=== PATIENT | male | born 1945 | race Caucasian/White ===

== ENCOUNTER 2018-04-03 17:24 | Observation (INO) | payer BC ==
--- OUTSIDE RECORDS SUMMARY | 2018-04-03 17:26 | XMS REPORT ---
:1945 [facility] Address [address] [place] [address] Dr. Bearden [address] [place] [address] Care Team Providers Name Role Phone UNKNOWN, REFERRING Primary Care Provider Unavailable Problems This patient has no known problems. Allergies, Adverse Reactions, Alerts This patient has no known allergies or adverse reactions. Medications This patient has no known medications. Encounters Start End Encounter Admission Attending Care Care Encounter Date/Time Date/Time Type Type Clinicians Facility Department ID 2017-07-21 2017-07-21 Emergency [facility] [id number] 18:06:00 18:06:00
[2018-04-03 17:46] LABS: Absolute Lymphocytes (CBC) 1.3 K/uL (0.7-4.9); Absolute Monocytes 0.8 K/uL (0.1-1.3); Absolute Neutrophil 4.1 K/uL (1.8-8.0); Hematocrit 32.3 % (39.6-49.0); Lymphocytes % 19.4 % (15.3-44.8); MCH 29.9 pg (27.0-35.0); MPV 7.9 fL (7.6-11.3); RBC Red Blood Cell Count 3.71 M/uL (4.33-5.43)
[2018-04-03 17:48] LABS: Protime INR 1.04
--- NOTE | 2018-04-03 17:51 | RAD REPORT ---
EXAM DESCRIPTION: CT - Ct Stroke Brain Wo Cont - 04/03/2018 5:39 pm CLINICAL HISTORY: Slurred speech COMPARISON: November 2017 TECHNIQUE: Computed axial tomography of the head was obtained. IV contrast was not requested. All CT scans are performed using dose optimization technique as appropriate and may include automated exposure control or mA/KV adjustment according to patient size. FINDINGS: An intracranial bleed is not seen . The ventricles are normal in caliber. No extra-axial fluid collection is noted. 2 centimeter low-density area within the left cerebrum is unchanged likely secondary to an old infarc t. A small low-density area within the left cerebellum is also unchanged likely representing an old i nfarct. Fluid within the sinuses/ mastoids is not seen. IMPRESSION: No acute intracranial abnormality is seen. If patient's symptoms persist MRI of the bra in would be recommended. Exam was discussed with Dr. French 5:40 p.m. April 03, 2018
[2018-04-03 18:03] LABS: Potassium 4.3 mmol/L (3.5-5.1)
--- NOTE | 2018-04-03 18:20 | ER ---
Nurse's Notes [facility] Name: Jose Ramon Lancaster Age: 72 yrs Sex: Male : 1945 Arrival Date: 04/03/2018 Time: 17:30 Bed 4 Private MD: Jamaal Oviedo T Diagnosis: Transient cerebral ischemic attack, unspecified Presentation: 04/03 17:21 Presenting complaint: states: Pt was having slurred speech and his right eye was sv closed after coming out of the bathroom started about 1645. reports that he had a pacemaker placed in November 2017 and had an embolism after the procedure and was sent to the [place] afterwards. Pt just had a repeat CT head today at 1430 as a follow up. 17:21 Note Pt arrived to the ER by EMS at [address] by Lydia BUSTOS. sv 17:31 Presenting complaint: EMS states: Called out at 1648 for slurred speech. EMS noted pt sv to have right facial droop, tongue deviated to the right and slurred speech. Gait was even. BP 140/74 87% RA, placed on O2 \T\ 2L per NC and O2 sat 92%. BS-115. 20G R FA, paced at 80. Transition of care: patient was not received from another setting of care. An acute neurological deficit is present. The charge nurse has been notified. The patients blood glucose was checked before arriving to the hospital and was found to be normal. Onset of symptoms was April 03, 2018 at 16:45. Risk Assessment: Do you want to hurt yourself or someone else? Patient reports no desire to harm self or others. Initial Sepsis Screen: Does the patient meet any 2 criteria? No. Patient's initial sepsis screen is negative. Does the patient have a suspected source of infection? No. Patient's initial sepsis screen is negative. Care prior to arrival: IV initiated. 20 GA, in the right forearm, Glucose check: 115 Oxygen administered. via nasal cannula. 17:31 Method Of Arrival: EMS: [facility] sv 17:31 Acuity: TOMMY 2 sv Triage Assessment: 18:31 The onset of the patients symptoms was April 03, 2018 at 16:45. sv Stroke Activation: Symptom onset < 3 hours Physician: Stroke Attending; Name: ; Notified At: 17:12; Arrived At: Physician: Chief Stroke Resident; Name: ; Notified At: 17:12; Arrived At: Physician: Stroke Resident; Name: ; Notified At: 17:12; Arrived At: Physician: ED Attending; Name: Dr French; Notified At: 17:12; Arrived At: 17:37 Physician: ED Resident; Name: ; Notified At: 17:12; Arrived At: Historical: - Allergies: 18:25 No Known Allergies; sv - Home Meds: 18:25 hydrochlorothiazide 12.5 mg Oral tab 1 tab once daily [Active]; Metoprolol Tartrate sv Oral [Active]; losartan 100 mg oral tab 1 tab once daily [Active]; folic acid 1 mg Oral tab 1 tab once daily [Active]; tamsulosin 0.4 mg oral cp24 1 cap once daily [Active]; montelukast 10 mg oral tab 1 tab once daily [Active]; donepezil 5 mg oral tab 1 tab once daily [Active]; aspirin 81 mg Oral chew 1 tab once daily [Active]; Vitamin D3 5,000 unit oral tab twice a day [Active]; atorvastatin 10 mg oral tab 1 tab once daily [Active]; Colace 100 mg oral cap 1 cap once daily [Active]; vitamin C90-banlz acid oral oral [Active]; multivitamin oral oral [Active]; Miralax Oral [Active]; - PMHx: 18:25 Alcoholism; TIA; embolism; Diabetes - NIDDM; left eye vision is bad since ; sv Hypertension; - PSHx: 18:25 Pacemaker; sv - Immunization history:: Adult Immunizations up to date. - Social history:: Smoking status: Patient/guardian denies using tobacco, Patient/guardian denies using alcohol, the patient reports quitting approximately .25 years ago. - Ebola Screening: : No symptoms or risks identified at this time. Screenin:35 Patient has been NPO before screening. The patient is alert, able to follow commands. sv The patient does not exhibit slurred or garbled speech The patient is not exhibiting difficulty speaking. The patient does not exhibit difficulty understanding words. The patient is able to swallow own secretions with no drooling or need for suction. Patient tolerated one teaspoon of water. No drooling, immediate coughing, gurgling, or clearing of the throat was noted. The patient tolerated 90mL of water. No drooling, immediate coughing, gurgling, or clearing of the throat was noted. The patient passed the bedside swallow screening. Oral medications may be given as ordered. Contact Physician for further diet orders. Provider notified of bedside swallow screening results: Guy French MD. 18:27 Abuse screen: Denies threats or abuse. Denies injuries from another. Nutritional sv screening: No deficits noted. Tuberculosis screening: No symptoms or risk factors identified. Fall Risk None identified. Assessment: 17:12 Reassessment: Code Stroke called. sv 17:32 General: Appears in no apparent distress. comfortable, Behavior is calm, cooperative, sv appropriate for age. Pain: Denies pain. Neuro: Level of Consciousness is awake, alert, obeys commands, Oriented to person, place, time, situation, Moves all extremities. Full function Speech is normal, Facial symmetry appears normal. Cardiovascular: Patient's skin is warm and dry. Rhythm is sinus rhythm. Respiratory: Respiratory effort is even, unlabored, Respiratory pattern is regular, symmetrical. Derm: Skin is pink, warm \T\ dry. 17:35 Patient has been NPO before screening. The patient is alert, and able to follow sv commands. The patient does not exhibit slurred or garbled speech. The patient is not exhibiting difficulty speaking. The patient does not exhibit difficulty understanding words. The patient is able to swallow own secretions with no drooling or need for suction. Patient tolerated one teaspoon of water. No drooling, immediate coughing, gurgling, or clearing of the throat was noted. The patient tolerated 90mL of water. No drooling, immediate coughing, gurgling, or clearing of the throat was noted. The patient passed the bedside swallow screening. Oral medications may be given as ordered. Contact Physician for further diet orders. Provider notified of bedside swallow screening results: Guy French MD. T-PA (Activase) Screening: Contraindications: Rapidly improving condition or minor deficit: Yes. 19:16 General: Appears in no apparent distress. comfortable, Behavior is calm, cooperative, ea appropriate for age. Pain: Denies pain. Neuro: Level of Consciousness is awake, alert, obeys commands, Oriented to person, place, time, situation, Moves all extremities. Full function Speech is normal, Facial symmetry appears normal. Cardiovascular: Heart tones S1 S2 present Patient's skin is warm and dry. Respiratory: Airway is patent Respiratory effort is even, unlabored, Respiratory pattern is regular, symmetrical, pt currently on 2 L of O2 per n/c Breath sounds are clear bilaterally. GI: Abdomen is round Bowel sounds present X 4 quads. : No signs and/or symptoms were reported regarding the genitourinary system. EENT: No signs and/or symptoms were reported regarding the EENT system. Derm: Skin is pink, warm \T\ dry. 19:53 Reassessment: Report called to Angelina BUSTOS on fourth floor. ea Vital Signs: 17:38 BP 142 / 69; Pulse 71; Resp 18; Temp 98.8; Pulse Ox 89% on R/A; Weight 99.79 kg; Height sv 6 ft. 0 in. (182.88 cm); Pain 0/10; 18:15 BP 126 / 76; Pulse 65; Resp 18; Pulse Ox 95% on 2 lpm NC; sv 19:15 BP 130 / 77; Pulse 74; Resp 16; Pulse Ox 98% on 2 lpm NC; mt 19:58 BP 133 / 83; Pulse 78; Resp 18; Pulse Ox 98% on 2 lpm NC; ea 17:38 Body Mass Index 29.84 (99.79 kg, 182.88 cm) sv 17:38 Pt placed on O2 \T\ 2L per NC. O2 sat up to 97%. sv NIH Stroke Scale Scores: 17:37 NIHSS Score: 0 sv 21:56 NIHSS Score: 0 ED Course: 17:30 Patient arrived in ED. ss 17:30 Guy French MD is Attending Physician. gs 17:30 Arm band placed on right wrist. sv 17:31 CT completed. Patient tolerated procedure well. Patient moved back from CT. nj 17:31 Patient moved back from CT. sv 17:31 Maintain EMS IV. Dressing intact. Site clean \T\ dry. Gauge \T\ site: 20G R FA. sv 17:39 CT Stroke Brain w/o Contrast In Process Unspecified. EDMS 17:39 Initial lab(s) drawn, by ED staff, sent to lab. sv 17:40 Patient has correct armband on for positive identification. Placed in gown. Bed in low sv position. Side rails up X2. Adult w/ patient. color television console monitor on. Pulse ox on. NIBP on. Head of bed elevated. 17:41 Yarely Shine, RN is Primary Nurse. sv 17:41 X-ray(s) taken. sv 17:48 Triage completed. sv 17:51 Stroke CXR 1 View In Process Unspecified. EDMS 17:58 EKG done, by mortuary technician. reviewed by Guy French MD. sm3 18:20 Yohannes Harrell DO is Hospitalizing Provider. gs 18:33 Jamaal Oviedo MD is Private Physician. sv 18:51 Troponin (emerg Dept Use Only) Sent. sv 18:51 Basic Metabolic Panel Sent. sv 18:51 CBC with Diff Sent. sv 18:51 Protime (+inr) Sent. sv 19:03 Primary Nurse role handed off by Yarely Shine RN sv 19:03 Report given to Ivana BUSTOS. sv 19:05 Ivana Stringer RN is Primary Nurse. ea 19:16 No provider procedures requiring assistance completed. Patient admitted, IV remains in ea place. Administered Medications: No medications were administered Point of Care Testing: Blood Glucose: 17:35 Blood Glucose: 102 mg/dL; sv Ranges: Outcome: 18:20 Decision to Hospitalize by Provider. gs 19:21 Instructed on the need for admit. ea 19:53 Condition: stable ea 19:57 Admitted to Med/surg accompanied by tech, via stretcher, room 413, with oxygen, with ea chart, Report called to Angelina BUSTOS 19:59 Patient left the ED. ea NIH Stroke Scale - NIH Stroke Score Date: 04/03/2018 Time: 17:37 Total Score = 0 1a. Level of Consciousness (LOC) - 0(Alert) 1b. Level of Consciousness (LOC) (Year \T\ Age) - 0(Both) 1c. LOC Commands (Open \T\ Closes Eyes/Chemical Plant Operator) - 0(Both) 2. Best Gaze (Lateral Gaze Paresis) - 0(Normal) 3. Visual Field Loss - 0(No visual loss) 4. Facial Palsy - 0(Normal) 5a. Left Arm: Motor (10-second hold) - 0(No drift) 5b. Right Arm: Motor (10-second hold) - 0(No drift) 6a. Left Leg: Motor (5-second hold - always test supine) - 0(No drift) 6b. Right Leg: Motor (5-second hold - always test supine) - 0(No drift) 7. Limb Ataxia (finger/nose \T\ heel/joseph - test with eyes open) - 0(Absent) 8. Sensory Loss (pinprick arms/legs/face) - 0(Normal) 9. Best Language: Aphasia (description/naming/reading) - 0(No aphasia) 10. Dysarthria (speech clarity - read or repeat words) - 0(Normal) 11. Extinction and Inattention (visual/tactile/auditory/spatial/personal) - 0(No abnormality) Initials: NIH Stroke Scale - NIH Stroke Score Date: 04/03/2018 Time: 21:56 Total Score = 0 1a. Level of Consciousness (LOC) - 0(Alert) 1b. Level of Consciousness (LOC) (Year \T\ Age) - 0(Both) 1c. LOC Commands (Open \T\ Closes Eyes/Chemical Plant Operator) - 0(Both) 2. Best Gaze (Lateral Gaze Paresis) - 0(Normal) 3. Visual Field Loss - 0(No visual loss) 4. Facial Palsy - 0(Normal) 5a. Left Arm: Motor (10-second hold) - 0(No drift) 5b. Right Arm: Motor (10-second hold) - 0(No drift) 6a. Left Leg: Motor (5-second hold - always test supine) - 0(No drift) 6b. Right Leg: Motor (5-second hold - always test supine) - 0(No drift) 7. Limb Ataxia (finger/nose \T\ heel/joseph - test with eyes open) - 0(Absent) 8. Sensory Loss (pinprick arms/legs/face) - 0(Normal) 9. Best Language: Aphasia (description/naming/reading) - 0(No aphasia) 10. Dysarthria (speech clarity - read or repeat words) - 0(Normal) 11. Extinction and Inattention (visual/tactile/auditory/spatial/personal) - 0(No abnormality) Initials: Signatures: Dispatcher [employer] Yarely Oleary RN RN sv Smirch, Shelby, RN RN ss Jordan, Nathan nj Thompson, Moriah mt Antunez, Elena, RN RN ea Starr, Gregory, MD MD gs Butler, Lori sm3 Corrections: (The following items were deleted from the chart) 18:32 17:31 Presenting complaint: EMS states: Called out at 1648 for slurred speech. sv EMS noted pt to have right facial droop, tongue deviated to the right and slurred speech. Gait was even. BP 140/74 87% RA, placed on O2 \T\ 2L per NC and O2 sat 92%. BS-115. 20G R FA, paced at 80. sv
--- NOTE | 2018-04-03 18:20 | EDPHYS ---
Physician Documentation [facility] Name: Jose Ramon Lancaster Age: 72 yrs Sex: Male : 1945 Arrival Date: 04/03/2018 Time: 17:30 Bed 4 Private MD: Jamaal Oviedo T ED Physician Guy French HPI: 04/03 17:30 This 72 yrs old Male presents to ER via Unassigned with complaints of gs neurologic deficit. 21:56 The patient's problem is reported as altered mental status, a facial droop, weakness. gs Onset: The symptoms/episode began/occurred acutely, today, at 16:44. Duration: This was a single incident, resolved. Context: occurred at home. The symptoms are alleviated by nothing. The symptoms are aggravated by nothing. Associated signs and symptoms: Pertinent positives: confusion, Pertinent negatives: shortness of breath. Severity of symptoms: At their worst the symptoms were incapacitating in the emergency department the symptoms have resolved and did so just prior to arrival. The patient has experienced similar episodes in the past, a few times, cva 6 weeks ago. Historical: - Allergies: 18:25 No Known Allergies; sv - Home Meds: 18:25 hydrochlorothiazide 12.5 mg Oral tab 1 tab once daily [Active]; Metoprolol Tartrate sv Oral [Active]; losartan 100 mg oral tab 1 tab once daily [Active]; folic acid 1 mg Oral tab 1 tab once daily [Active]; tamsulosin 0.4 mg oral cp24 1 cap once daily [Active]; montelukast 10 mg oral tab 1 tab once daily [Active]; donepezil 5 mg oral tab 1 tab once daily [Active]; aspirin 81 mg Oral chew 1 tab once daily [Active]; Vitamin D3 5,000 unit oral tab twice a day [Active]; atorvastatin 10 mg oral tab 1 tab once daily [Active]; Colace 100 mg oral cap 1 cap once daily [Active]; vitamin N86-yhwhh acid oral oral [Active]; multivitamin oral oral [Active]; Miralax Oral [Active]; - PMHx: 18:25 Alcoholism; TIA; embolism; Diabetes - NIDDM; left eye vision is bad since ; sv Hypertension; - PSHx: 18:25 Pacemaker; sv - Immunization history:: Adult Immunizations up to date. - Social history:: Smoking status: Patient/guardian denies using tobacco, Patient/guardian denies using alcohol, the patient reports quitting approximately .25 years ago. - Ebola Screening: : No symptoms or risks identified at this time. ROS: 21:56 All other systems are negative. gs Exam: 21:56 Head/Face: Normocephalic, atraumatic. Eyes: Pupils equal round and reactive to light, gs extra-ocular motions intact. Lids and lashes normal. Conjunctiva and sclera are non-icteric and not injected. Cornea within normal limits. Periorbital areas with no swelling, redness, or edema. ENT: Nares patent. No nasal discharge, no septal abnormalities noted. Tympanic membranes are normal and external auditory canals are clear. Oropharynx with no redness, swelling, or masses, exudates, or evidence of obstruction, uvula midline. Mucous membranes moist. Neck: Trachea midline, no thyromegaly or masses palpated, and no cervical lymphadenopathy. Supple, full range of motion without nuchal rigidity, or vertebral point tenderness. No Meningismus. Chest/axilla: Normal chest wall appearance and motion. Nontender with no deformity. No lesions are appreciated. Cardiovascular: Regular rate and rhythm with a normal S1 and S2. No gallops, murmurs, or rubs. Normal PMI, no JVD. No pulse deficits. Respiratory: Lungs have equal breath sounds bilaterally, clear to auscultation and percussion. No rales, rhonchi or wheezes noted. No increased work of breathing, no retractions or nasal flaring. Abdomen/GI: Soft, non-tender, with normal bowel sounds. No distension or tympany. No guarding or rebound. No evidence of tenderness throughout. Back: No spinal tenderness. No costovertebral tenderness. Full range of motion. Skin: Warm, dry with normal turgor. Normal color with no rashes, no lesions, and no evidence of cellulitis. MS/ Extremity: Pulses equal, no cyanosis. Neurovascular intact. Full, normal range of motion. 21:56 Neuro: Orientation: is normal, Mentation: is normal, Memory: is normal, Cranial nerves: CN II- XII are normal as tested, Cerebellar function: normal finger to nose testing, Motor: is normal, Sensation: is normal. Vital Signs: 17:38 BP 142 / 69; Pulse 71; Resp 18; Temp 98.8; Pulse Ox 89% on R/A; Weight 99.79 kg; Height sv 6 ft. 0 in. (182.88 cm); Pain 0/10; 18:15 BP 126 / 76; Pulse 65; Resp 18; Pulse Ox 95% on 2 lpm NC; sv 19:15 BP 130 / 77; Pulse 74; Resp 16; Pulse Ox 98% on 2 lpm NC; mt 19:58 BP 133 / 83; Pulse 78; Resp 18; Pulse Ox 98% on 2 lpm NC; ea 17:38 Body Mass Index 29.84 (99.79 kg, 182.88 cm) sv 17:38 Pt placed on O2 \T\ 2L per NC. O2 sat up to 97%. sv NIH Stroke Scale Scores: 17:37 NIHSS Score: 0 sv 21:56 NIHSS Score: 0 gs MDM: 17:44 Patient medically screened. 21:56 Differential diagnosis: CVA, TIA, metabolic disorder, drug effects. Data reviewed: vital signs, nurses notes. ED course: no tpa symptoms completely resolved. 04/03 17:32 Order name: Troponin (emerg Dept Use Only) 04/03 17:32 Order name: Basic Metabolic Panel 04/03 17:32 Order name: CBC with Diff 04/03 17:32 Order name: Protime (+inr) 04/03 17:32 Order name: Troponin (Emerg Dept Use Only); Complete Time: 18:19 EDMS 04/03 17:32 Order name: Basic Metabolic Panel; Complete Time: 18:19 EDMS 04/03 17:32 Order name: CBC with Automated Diff; Complete Time: 18:19 EDMS 04/03 17:32 Order name: Protime (+INR); Complete Time: 18:19 EDMS 04/03 18:33 Order name: CBC with Automated Diff EDMS 04/03 18:33 Order name: CBC with Automated Diff EDMS 04/03 18:33 Order name: CBC with Automated Diff EDMS 04/03 18:33 Order name: CBC with Automated Diff EDMS 04/03 18:33 Order name: CKMB Creatine Kinase MB EDMS 04/03 18:33 Order name: CKMB Creatine Kinase MB EDMS 04/03 18:33 Order name: CKMB Creatine Kinase MB EDMS 04/03 18:33 Order name: Comprehensive Metabolic Panel [facility] 04/03 18:33 Order name: Comprehensive Metabolic Panel [facility] 04/03 18:33 Order name: Comprehensive Metabolic Panel [facility] 04/03 18:33 Order name: Comprehensive Metabolic Panel [facility] 04/03 18:33 Order name: Creatine Phosphokinase [facility] 04/03 18:33 Order name: Creatine Phosphokinase [facility] 04/03 18:33 Order name: Creatine Phosphokinase [facility] 04/03 18:33 Order name: Hemoglobin A1c [facility] 04/03 18:33 Order name: Hemoglobin A1c [facility] 04/03 18:33 Order name: Lipid Profile [facility] 04/03 18:33 Order name: Lipid Profile [facility] 04/03 18:33 Order name: Magnesium [facility] 04/03 18:33 Order name: Magnesium [facility] 04/03 18:33 Order name: Magnesium [facility] 04/03 18:33 Order name: Magnesium [facility] 04/03 17:32 Order name: CT Stroke Brain w/o Contrast; Complete Time: 18:19 04/03 17:32 Order name: Stroke CXR 1 View 04/03 17:32 Order name: EKG; Complete Time: 17:33 04/03 17:32 Order name: Accucheck; Complete Time: 18:51 04/03 17:32 Order name: Cardiac monitoring; Complete Time: 18:51 04/03 17:32 Order name: EKG - Nurse/Tech; Complete Time: 18:52 04/03 17:32 Order name: IV Saline Lock; Complete Time: 18:19 04/03 17:32 Order name: Labs collected and sent; Complete Time: 18:19 04/03 17:32 Order name: NPO; Complete Time: 18:19 04/03 17:32 Order name: O2 Per Protocol; Complete Time: 18:19 04/03 17:32 Order name: O2 Sat Monitoring; Complete Time: 18:19 04/03 17:32 Order name: Stroke Swallow Screen; Complete Time: 18:19 04/03 18:33 Order name: CONS Physician Consult [facility] 04/03 18:33 Order name: Physical Therapy Consult [facility] 04/03 18:33 Order name: Consistent Carb (ADA) [address] [facility] 04/03 18:33 Order name: T4 Free [facility] 04/03 18:33 Order name: T4 Free [facility] 04/03 18:33 Order name: Troponin I [facility] 04/03 18:33 Order name: Troponin I [facility] 04/03 18:33 Order name: Troponin I [facility] 04/03 18:33 Order name: Thyroid Stimulating Hormone [facility] 04/03 18:33 Order name: Thyroid Stimulating Hormone [facility] 04/03 18:34 Order name: Speech Therapy Consult EDMS Administered Medications: No medications were administered Point of Care Testing: Blood Glucose: 17:35 Blood Glucose: 102 mg/dL; sv Ranges: Critical Glucose Levels:Adult <50 mg/dl or >400 mg/dl <40 mg/dl or >180 mg/dl Disposition: 04/03/18 18:20 Hospitalization ordered by Yohannes Harrell for Observation. Preliminary diagnosis is Transient cerebral ischemic attack, unspecified. - Bed requested for Telemetry/MedSurg (observation). - Status is Observation. ea - Condition is Stable. - Problem is new. - Symptoms have improved. UTI on Admission? No Critical care time excluding procedures: 21:56 Critical care time: Bedside Care: 10 minutes, Consultation: 10 minutes, Family gs Intervention: 10 minutes. Total time: 30 minutes NIH Stroke Scale - NIH Stroke Score Date: 04/03/2018 Time: 17:37 Total Score = 0 1a. Level of Consciousness (LOC) - 0(Alert) 1b. Level of Consciousness (LOC) (Year \T\ Age) - 0(Both) 1c. LOC Commands (Open \T\ Closes Eyes/Casting Operator) - 0(Both) 2. Best Gaze (Lateral Gaze Paresis) - 0(Normal) 3. Visual Field Loss - 0(No visual loss) 4. Facial Palsy - 0(Normal) 5a. Left Arm: Motor (10-second hold) - 0(No drift) 5b. Right Arm: Motor (10-second hold) - 0(No drift) 6a. Left Leg: Motor (5-second hold - always test supine) - 0(No drift) 6b. Right Leg: Motor (5-second hold - always test supine) - 0(No drift) 7. Limb Ataxia (finger/nose \T\ heel/joseph - test with eyes open) - 0(Absent) 8. Sensory Loss (pinprick arms/legs/face) - 0(Normal) 9. Best Language: Aphasia (description/naming/reading) - 0(No aphasia) 10. Dysarthria (speech clarity - read or repeat words) - 0(Normal) 11. Extinction and Inattention (visual/tactile/auditory/spatial/personal) - 0(No abnormality) Initials: soledad NIH Stroke Scale - NIH Stroke Score Date: 04/03/2018 Time: 21:56 Total Score = 0 1a. Level of Consciousness (LOC) - 0(Alert) 1b. Level of Consciousness (LOC) (Year \T\ Age) - 0(Both) 1c. LOC Commands (Open \T\ Closes Eyes/Casting Operator) - 0(Both) 2. Best Gaze (Lateral Gaze Paresis) - 0(Normal) 3. Visual Field Loss - 0(No visual loss) 4. Facial Palsy - 0(Normal) 5a. Left Arm: Motor (10-second hold) - 0(No drift) 5b. Right Arm: Motor (10-second hold) - 0(No drift) 6a. Left Leg: Motor (5-second hold - always test supine) - 0(No drift) 6b. Right Leg: Motor (5-second hold - always test supine) - 0(No drift) 7. Limb Ataxia (finger/nose \T\ heel/joseph - test with eyes open) - 0(Absent) 8. Sensory Loss (pinprick arms/legs/face) - 0(Normal) 9. Best Language: Aphasia (description/naming/reading) - 0(No aphasia) 10. Dysarthria (speech clarity - read or repeat words) - 0(Normal) 11. Extinction and Inattention (visual/tactile/auditory/spatial/personal) - 0(No abnormality) Initials: Signatures: Dispatcher [employer] EDYarely Pollard RN Phuong Machado RN RN dw Antunez, Elena, RN RN ea Starr, Gregory, MD MD gs Corrections: (The following items were deleted from the chart) 19:03 18:20 Hospitalization Ordered by Yohannes Harrell DO for Observation. Preliminary diagnosis is Transient cerebral ischemic attack, unspecified. Bed requested for Telemetry/MedSurg (observation). Status is Observation. Condition is Stable. Problem is new. Symptoms have improved. UTI on Admission? No. gs 19:06 19:03 04/03/2018 18:20 Hospitalization Ordered by Yohannes Harrell DO for dw Observation. Preliminary diagnosis is Transient cerebral ischemic attack, unspecified. Bed requested for Telemetry/MedSurg (observation). Status is Observation. Condition is Stable. Problem is new. Symptoms have improved. UTI on Admission? No. dw 19:59 19:06 04/03/2018 18:20 Hospitalization Ordered by Yohannes Harrell DO for ea Observation. Preliminary diagnosis is Transient cerebral ischemic attack, unspecified. Bed requested for Telemetry/MedSurg (observation). Status is Observation. Condition is Stable. Problem is new. Symptoms have improved. UTI on Admission? No. dw
[2018-04-03] MEDS ORDERED: D50W 25 GM/50 ML SYRINGE IV PRN (18:25)
[2018-04-03] MEDS ORDERED: GLUCAGON 1 MG/VIAL IM PRN (18:25)
[2018-04-03] MEDS ORDERED: ONDANSETRON 4 MG/2 ML VIAL IV PRN (18:25)
[2018-04-03] MEDS ORDERED: ACETAMINOPHEN 500 MG TAB PO PRN (18:25)
--- NOTE | 2018-04-03 18:39 | RAD REPORT ---
EXAM DESCRIPTION: Richard Single View04/03/2018 5:51 pm CLINICAL HISTORY: Cough COMPARISON: November 2017 FINDINGS: The lungs appear clear of acute infiltrate. The heart is mildly enlarged. Pacemaker leads are in place. IMPRESSION: No acute abnormalities displayed
--- NOTE | 2018-04-03 19:57 | P.HP ---
Certification for Inpatient Patient admitted to: Observation With expected LOS: <2 Midnights Practitioner: I am a practitioner with admitting privileges, knowledge of patient current condition, hospital course, and medical plan of care. Services: Services provided to patient in accordance with Admission requirements found in Title 42 Section 412.3 of the Code of Federal Regulations Patient History Date of Service: 04/03/18 Reason for admission: TIA History of Present Illness: Mr Lancaster is a 72 years old male, former smoker and drinker, with history of DM II, HTN, pacemaker placement in 12/10 complicated with an embolic event, who had a post stroke CT head today at about 1430. Subsequently at about 1630, the patient suddenly start with slurred speech. 10 minutes later, arrived EMS and found the patient with right facial drop. No numbness, tingling or weakness. When the patient was evaluated in ED, he already was starting to improve, his deficit. At my encounter the patient had no neurologic deficit. Allergies No Known Allergies Allergy (Verified 12/05/17 21:57) Home medications list reviewed: Yes Home Medications: Atorvastatin Calcium [Lipitor*] 10 mg PO DAILY 12/05/17 Clopidogrel Bisulfate [Clopidogrel] 75 mg PO DAILY 12/05/17 Cyanocobalamin (Vitamin B-12) [B-12] 5,000 mcg PO DAILY 12/05/17 Folic Acid [Folic Acid*] 1 tab PO DAILY 12/05/17 Losartan/Hydrochlorothiazide [Losartan-Hctz 100-12.5 mg Tab] 1 tab PO DAILY Metformin ER [Glucophage ER*] 500 mg PO BID 12/05/17 Montelukast [Singulair*] 10 mg PO DAILY 12/05/17 Tamsulosin [Flomax*] 0.4 mg PO DAILY 12/05/17 Ubidecarenone [Co Q-10] 200 mg PO DAILY 12/05/17 chlordiazePOXIDE HCl [Librium*] 25 mg PO BID 12/05/17 Cholecalciferol (Vitamin D3) [Vitamin D3] 1,000 unit PO DAILY 12/06/17 Metoprolol Succinate [Toprol Xl*] 50 mg PO BID 6AM 6PM #60 tab 12/12/17 - Past Medical/Surgical History Diabetic: No -: ETOH -: HTN -: DM -: STROKE -: BPH -: testicle sx - Family History Family History: Reviewed- Non-Contributory - Social History Smoking Status: Former smoker Alcohol use: Yes CD- Drugs: No Caffeine use: Yes Place of Residence: Home Review of Systems 10-point ROS is otherwise unremarkable Physical Examination - Physical Exam General: Alert, In no apparent distress HEENT: Atraumatic, PERRLA, Mucous membr. moist/pink, EOMI, Sclerae nonicteric Neck: Supple, 2+ carotid pulse no bruit, No LAD, Without JVD or thyroid abnormality Respiratory: Clear to auscultation bilaterally, Normal air movement Cardiovascular: Regular rate/rhythm, Normal S1 S2 Gastrointestinal: Normal bowel sounds, No tenderness Musculoskeletal: No tenderness Integumentary: No rashes Neurological: Normal speech, Normal strength at 5/5 x4 extr, Normal tone, Normal affect Lymphatics: No axilla or inguinal lymphadenopathy - Studies Laboratory Data (last 24 hrs) 04/03/18 17:31: PT 12.3, INR 1.04 04/03/18 17:31: WBC 6.5, Hgb 11.1 L, Hct 32.3 L, Plt Count 255 04/03/18 17:31: Sodium 140, Potassium 4.3, BUN 31 H, Creatinine 1.50 H, Glucose 97 Assessment and Plan - Problems (Diagnosis) (1) TIA (transient ischemic attack) Current Visit: Yes Status: Acute Qualifiers: Transient cerebral ischemia type: other Qualified Code(s): G45.8 - Other transient cerebral ischemic attacks and related syndromes (2) Hypertension Onset Date: 12/06/17 Current Visit: No Status: Chronic Qualifiers: Hypertension type: essential hypertension Qualified Code(s): I10 - Essential (primary) hypertension (3) Type 2 diabetes mellitus Onset Date: 12/06/17 Current Visit: No Status: Chronic Qualifiers: Diabetes mellitus buttermaker helper insulin use: without jail use Diabetes mellitus complication status: without complication Qualified Code(s): E11.9 - Type 2 diabetes mellitus without complications - Plan The patient was admitted to the hospital due to TIA. CT head showed no acute abnormalities. He is already on statins and plavix. Pending ECHO, carotid doppler, and Brain MRI if pacemaker compatible. Dr Muñoz consulted. - Advance Directives Does patient have a Living Will: No Does patient have a Durable POA for Healthcare: No - Code Status/Comfort Care Code Status Assessed: Yes Code Status: Full Code
[2018-04-03 20:22] VITALS: BMI 29.1
[2018-04-03] MEDS ORDERED: INSULIN -REGULAR HUMAN 50 UNIT/0.5 ML ML SQ SCH (21:00)
[2018-04-03] MEDS ORDERED: TAMSULOSIN 0.4 MG SR CAP PO SCH (21:00)
[2018-04-03] MEDS ORDERED: ATORVASTATIN 80 MG TAB PO SCH (21:00)
[2018-04-03] MEDS: INSULIN -REGULAR HUMAN 50 UNIT/0.5 ML ML SQ SCH (21:00)
--- NOTE | 2018-04-03 21:16 | RAD REPORT ---
EXAM DESCRIPTION: VASCarotid Artery Bilateral04/03/2018 9:08 pm CLINICAL HISTORY: TIA COMPARISON: 2012 FINDINGS: The velocity of the right internal carotid artery equals 86 cm/sec. The right ICA/CCA rati o 1 The velocity of the left internal carotid artery equals 90 cm/sec. The left ICA/CCA ratio 0.9 Mild plaque is present within the carotid arteries. The vertebral arteries demonstrate antegrade flow IMPRESSION: Mild plaque within the carotid arteries without evidence of a hemodynamically significan t stenosis
--- NOTE | 2018-04-03 21:31 | EKG ---
Test Date: 2018-04-03 Test Time: 17:43:56 [employer]: [place] MEASUREMENT RESULTS: Intervals: Rate: 66 AL: 228 QRSD: 168 QT: 444 QTc: 465 [place]: P: 105 AL: 228 QRS: -76 T: 71 INTERPRETIVE STATEMENTS: Atrial-sensed ventricular-paced rhythm with prolonged AV conduction Abnormal ECG Compared to ECG 12/10/2017 14:10:59 Sinus rhythm no longer present Electronically Signed On 04-03-18 21:30:59 CDT by Gino Arzola
[2018-04-03] MEDS: ENOXAPARIN 40 MG/0.4 ML SQ SCH (22:08)
[2018-04-03] MEDS: NA CHLORIDE 0.9% 1,000 ML IV SCH (22:09)
[2018-04-04 00:51] LABS: CKMB Creatine Kinase MB < 1.0 ng/mL (0.3-3.6); Creatine Phosphokinase 54 U/L (39-308)
[2018-04-04 02:03] LABS: Urine Appearance CLEAR; Urine Bilirubin NEGATIVE (NEG); Urine Blood NEGATIVE (NEG); Urine Color YELLOW; Urine Glucose NEGATIVE (NEG); Urine Protein NEGATIVE (NEG); Urine Specific Gravity 1.015 (1.005-1.030); Urine Urobilinogen 0.2 mg/dL (0.2-1.0)
[2018-04-04 02:27] LABS: Urine Microscopic Reflex ORDER UMIC
[2018-04-04 02:33] LABS: Urine Bacteria >50 /HPF (NONE SEEN); Urine Culture Reflex Order REFLEXED; Urine RBC NONE SEEN /HPF (NONE SEEN)
[2018-04-04 05:54] LABS: Absolute Lymphocytes (CBC) 1.1 K/uL (0.7-4.9); Absolute Monocytes 0.7 K/uL (0.1-1.3); Absolute Neutrophil 3.8 K/uL (1.8-8.0); Basophils % 0.7 % (0-1.3); Eosinophils % 4.3 % (0-4.4); Hematocrit 30.8 % (39.6-49.0); Lymphocytes % 18.7 % (15.3-44.8); MCH 30.2 pg (27.0-35.0); MCV 85.6 fL (80-100); MPV 7.9 fL (7.6-11.3)
[2018-04-04] MEDS ORDERED: METOPROLOL TAR 25 MG TAB PO SCH ×2 (06:00→18:00)
[2018-04-04 06:06] LABS: Albumin 2.9 g/dL (3.4-5.0); Bilirubin Total 0.4 mg/dL (0.2-1.0); Magnesium 1.9 mg/dL (1.8-2.4); Potassium 4.1 mmol/L (3.5-5.1); Protein, Total 6.3 g/dL (6.4-8.2); Thyroid Stimulating Hormone 1.52 uIU/mL (0.36-3.74)
[2018-04-04] MEDS: INSULIN -REGULAR HUMAN 50 UNIT/0.5 ML ML SQ SCH ×3 (07:30→16:30)
[2018-04-04 07:39] LABS: Ferritin 362.3 ng/mL (26-388)
[2018-04-04] MEDS ORDERED: ASPIRIN EC 81 MG TAB PO SCH (09:00)
[2018-04-04] MEDS ORDERED: FOLIC ACID 1 MG TABLET PO SCH (09:00)
[2018-04-04] MEDS ORDERED: CLOPIDOGREL 75 MG TABLET PO SCH (09:00)
[2018-04-04] MEDS ORDERED: CEFTRIAXONE/SWI 1gm 1 GM/10 ML SYR IV SCH (09:00)
[2018-04-04] MEDS ORDERED: CEFTRIAXONE 1 GM/NS 50 ML 1 GM/50 ML BAG IV SCH (09:00)
[2018-04-04] MEDS ORDERED: CYANOCOBALAMIN 1,000 MCG TAB PO SCH (09:00)
[2018-04-04] MEDS: ENOXAPARIN 40 MG/0.4 ML SQ SCH (09:50)
[2018-04-04 10:05] LABS: CKMB Creatine Kinase MB 1.2 ng/mL (0.3-3.6)
[2018-04-04] MEDS: NA CHLORIDE 0.9% 1,000 ML IV SCH (10:33)
--- NOTE | 2018-04-04 10:49 | ECHO ---
HEIGHT: 6 ft 0 in WEIGHT: 215 lb 1.6 oz DATE OF STUDY: 04/04/[address]: Yohannes Harrell DO 2-DIMENSIONAL: YES M.MODE: YES DOPPLER: YES COLOR FLOW: YES TDS: NO PORTABLE: NO DEFINITY: NO BUBBLE STUDY: NO DIAGNOSIS: TRANSIENT ISCHEMIC ATTACK WITH HISTORY OF CEREBRAL VASCULAR ACCIDENT, HYPERTENSION, DIABETES MELLITUS AND PACEMAKER. CARDIAC HISTORY: CATHERIZATION: YES SURGERY: NO PROSTHETIC VALVE: NO PACEMAKER: YES MEASUREMENTS (cm) DIASTOLIC (NORMALS) SYSTOLIC (NORMALS) IVSd 1.1 (0.6-1.2) LA Diam 3.9 (1.9-4.0) LVEF 60-65% LVIDd 4.8 (3.5-5.7) LVIDs 3.4 (2.0-3.5) %FS 29% LVPWd 1.2 (0.6-1.2) Ao Diam 3.7 (2.0-3.7) 2 DIMENSIONAL ASSESSMENT: RIGHT ATRIUM: NORMAL LEFT ATRIUM: NORMAL RIGHT VENTRICLE: NORMAL LEFT VENTRICLE: NORMAL TRICUSPID VALVE: NORMAL MITRAL VALVE: NORMAL PULMONIC VALVE: NORMAL AORTIC VALVE: NORMAL PERICARDIAL EFFUSION: NONE AORTIC ROOT: NORMAL LEFT VENTRICULAR WALL MOTION: NORMAL DOPPLER/COLOR FLOW: IMPAIRED LEFT VENTRICULAR RELAXATION. PHYSIOLOGIC TRICUSPID REGURGITATION. NORMAL RIGHT VENTRICULAR SYSTOLIC PRESSURE. COMMENTS: NORMAL 2D ECHOCARDIOGRAM. IMPAIRED LEFT VENTRICULAR RELAXATION. TECHNOLOGIST: Desiree COMER
--- NOTE | 2018-04-04 11:42 | P.PN ---
Subjective Date of Service: 04/04/18 Primary Care Provider: Dr. Oviedo; Neurology-Dr. Muñoz Chief Complaint: TIA Subjective: Improving (Patient doing well this time. No slurred speech noted. No right facial droop.) Physical Examination - Vital Signs Temperature: 96.9 F Blood Pressure: 106/58 Pulse: 60 Respirations: 16 Pulse Ox (%): 98 - Physical Exam General: Alert, In no apparent distress, Oriented x3, Cooperative HEENT: Atraumatic Neck: Supple Respiratory: Clear to auscultation bilaterally, Normal air movement Cardiovascular: Normal pulses, Regular rate/rhythm Gastrointestinal: Normal bowel sounds, Soft and benign, Non-distended, No tenderness, No masses, No rebound, No guarding Musculoskeletal: No erythema, No tenderness, No warmth Integumentary: No tenderness/swelling, No erythema, No warmth, No cyanosis Neurological: Normal speech, Normal strength at 5/5 x4 extr, Normal tone, Normal affect - Studies Laboratory Data (last 24 hrs) 04/03/18 17:31: PT 12.3, INR 1.04 04/03/18 17:31: WBC 6.5, Hgb 11.1 L, Hct 32.3 L, Plt Count 255 04/03/18 17:31: Sodium 140, Potassium 4.3, BUN 31 H, Creatinine 1.50 H, Glucose 97 Medications List Reviewed: Yes Assessment & Plan - Problems (Diagnosis) (1) History of CVA (cerebrovascular accident) Current Visit: Yes Status: Chronic Plan: Patient presented with slurred speech and right facial droop. Likely TIA. This has resolved. Patient with history of CVA. Patient previously taking aspirin at home. Aspirin Plavix started. Will obtain MRI if pacemaker compatible. Carotid Doppler shows no acute stenosis. Echocardiogram unremarkable. Will discuss case further with Neurology. Will have physical therapy assess ambulation. Patient found to have UTI. Patient will need treatment at discharge. Patient also had renal insufficiency likely from medication. Losartan and hydrochlorothiazide discontinued. Metoprolol has been decreased. Anticipate discharge later today. (2) Hyperlipidemia Current Visit: Yes Status: Chronic Plan: Will continue with Lipitor. (3) History of pacemaker Current Visit: Yes Status: Chronic Plan: Patient with pacemaker. Patient will need follow up with cardiology. (4) TIA (transient ischemic attack) Onset Date: 04/04/18 Current Visit: Yes Status: Acute Plan: Patient reported slurred speech and right-sided facial droop. This resolved prior to coming to the emergency room. No abnormalities noted at this time. Continue as above. Will discuss with Neurology. Qualifiers: Transient cerebral ischemia type: other Qualified Code(s): G45.8 - Other transient cerebral ischemic attacks and related syndromes (5) Hypertension Onset Date: 12/06/17 Current Visit: No Status: Chronic Plan: Medications have been adjusted. Hydrochlorothiazide and losartan has been discontinued due to renal sufficiency. Renal function improved with hydration. Metoprolol has been decreased as well. At discharge medications will need to be adjusted. Qualifiers: Hypertension type: essential hypertension Qualified Code(s): I10 - Essential (primary) hypertension (6) Type 2 diabetes mellitus Onset Date: 12/06/17 Current Visit: No Status: Chronic Plan: Will continue with medication. Hypoglycemia will need to be educated. May need to adjust medications at discharge. Qualifiers: Diabetes mellitus terminal worker insulin use: without terminal worker use Diabetes mellitus complication status: without complication Qualified Code(s): E11.9 - Type 2 diabetes mellitus without complications (7) UTI (urinary tract infection) Current Visit: Yes Status: Acute Plan: Patient found to have UTI, urine culture pending. Will start IV antibiotic therapy. Patient will need oral medication at discharge. Qualifiers: Urinary tract infection type: site unspecified Hematuria presence: without hematuria Qualified Code(s): N39.0 - Urinary tract infection, site not specified (8) Renal insufficiency Current Visit: Yes Status: Acute Plan: Medications adjusted. Patient now on off lisinopril and hydrochlorothiazide. Patient being treated for UTI. Renal function improved with hydration. Discharge Plan: Home Plan to discharge in: 24 Hours - Code Status/Comfort Care Code Status Assessed: Yes (Patient full code.) Code Status: Full Code Time Spent Managing Pts Care (In Minutes): 55
[2018-04-04 12:43] VITALS: O2SAT 98
--- NOTE | 2018-04-04 15:15 | P.DS ---
Admission Date: 04/03/18 Discharge Date: 04/04/18 Primary Care Provider: Dr. Oviedo; Neurology-Dr. Muñoz Disposition: ROUTINE DISCHARGE Discharge Condition: GOOD Reason for Admission: TIA Consultations: Neurology-Dr. Muñoz Procedures: CT scan: COMPARISON: November 2017 TECHNIQUE: Computed axial tomography of the head was obtained. IV contrast was not requested. All CT scans are performed using dose optimization technique as appropriate and may include automated exposure control or mA/KV adjustment according to patient size. FINDINGS: An intracranial bleed is not seen . The ventricles are normal in caliber. No extra-axial fluid collection is noted. 2 centimeter low-density area within the left cerebrum is unchanged likely secondary to an old infarct. A small low-density area within the left cerebellum is also unchanged likely representing an old infarct. Fluid within the sinuses/ mastoids is not seen. IMPRESSION: No acute intracranial abnormality is seen. If patient's symptoms persist MRI of the brain would be recommended. Carotid Doppler: No acute stenosis noted. Echocardiogram: Ejection fraction 60%. DOPPLER/COLOR FLOW: IMPAIRED LEFT VENTRICULAR RELAXATION. PHYSIOLOGIC TRICUSPID REGURGITATION. NORMAL RIGHT VENTRICULAR SYSTOLIC PRESSURE. COMMENTS: NORMAL 2D ECHOCARDIOGRAM. IMPAIRED LEFT VENTRICULAR RELAXATION. - Problems (1) History of CVA (cerebrovascular accident) Current Visit: Yes Status: Chronic (2) Hyperlipidemia Current Visit: Yes Status: Chronic (3) History of pacemaker Current Visit: Yes Status: Chronic (4) TIA (transient ischemic attack) Onset Date: 04/04/18 Current Visit: Yes Status: Resolved Qualifiers: Transient cerebral ischemia type: other Qualified Code(s): G45.8 - Other transient cerebral ischemic attacks and related syndromes (5) Hypertension Onset Date: 12/06/17 Current Visit: No Status: Chronic Qualifiers: Hypertension type: essential hypertension Qualified Code(s): I10 - Essential (primary) hypertension (6) Type 2 diabetes mellitus Onset Date: 12/06/17 Current Visit: No Status: Chronic Qualifiers: Diabetes mellitus hopper feeder insulin use: without hopper feeder use Diabetes mellitus complication status: without complication Qualified Code(s): E11.9 - Type 2 diabetes mellitus without complications (7) Renal insufficiency Current Visit: Yes Status: Acute (8) Asymptomatic bacteriuria Current Visit: Yes Status: Acute (9) Anemia Current Visit: Yes Status: Chronic Qualifiers: Anemia type: iron deficiency Iron deficiency anemia type: unspecified iron deficiency Qualified Code(s): D50.9 - Iron deficiency anemia, unspecified (10) Dementia Current Visit: Yes Status: Chronic (11) BPH (benign prostatic hyperplasia) Current Visit: Yes Status: Chronic Qualifiers: Lower urinary tract symptom presence: unspecified whether lower urinary tract symptoms present Qualified Code(s): N40.0 - Benign prostatic hyperplasia without lower urinary tract symptoms Brief History of Present Illness: 72 yo male presented with slurred speech and right-sided facial weakness. Symptoms resolved prior to the the ER. Patient admitted for further evaluation. Hospital Course: During the course of his stay patient was evaluated for possible TIA. Patient with history of previous CVA. This was noted on CT scan. CT scan did not show any acute stroke. Previous stroke noted. As mentioned previously patient presented to the emergency room without any symptoms. The patient had slurred speech and right facial droop. The patient was monitored overnight. Neurology did evaluate the patient. Echocardiogram unremarkable with EF of 60%. Carotid Doppler showed no acute stenosis. MRI was not done since the patient has a pacemaker. Neurology felt that that would not change the plan of care. Neurology recommended that the patient add Plavix. At discharge he will continue with aspirin 81 mg daily and Plavix 75 mg daily. Recommendation is to continue with his other medications. Recommendations for the patient to follow up with neurology in 1 week to monitor his progress. Neurology will consider getting MRI at a higher level of care center that would be able to do MRI scan with pacemaker. Patient has hypertension. Medications were adjusted due to renal insufficiency and low blood pressure. Patient previously on hydrochlorothiazide, losartan and metoprolol. Patient did well with metoprolol only at a lower dose. At discharge he will continue with metoprolol 25 mg 1 pill twice daily. Recommendation daily. Further adjustment can be done by his PCP, cardiology or neurology. Please note at discharge hydrochlorothiazide, losartan have been discontinued. Metoprolol has been decreased from 100 mg twice daily to 25 mg 1 pill twice daily. Further adjustment may be required. Patient presented with renal insufficiency likely related to medication particularly hydrochlorothiazide and losartan. Patient received IV fluids. Improvement of renal function was noted at discharge. Patient was evaluated for possible UTI. Patient with history of UTI in the past. Patient did not have any pain with urination, hematuria, or fever. Patient found to have asymptomatic bacteriuria. No indication for treatment at this time. This can be followed up as an outpatient. UTI prevention will need to be enforced. Patient has hyperlipidemia. LDL 96. Recommendation is to continue with Lipitor 80 mg daily. Patient has a history of iron deficiency anemia. At discharge he will continue with iron supplementation, B12 and folic acid supplementation. At discharge she will continue with iron 325 mg 1 pill daily, B12 vitamin 1 pill daily and folic acid 1 mg daily. Recommendation is to recheck lab-CBC in 1-2 weeks to monitor his progress. Patient has BPH. Patient continue with Flomax 0.4 mg daily. Patient has dementia. Patient will continue with Aricept 5 mg daily. Vital Signs/Physical Exam: Temp Pulse Resp BP Pulse Ox 97.2 F 66 16 122/68 97 04/04/18 12:00 04/04/18 12:00 04/04/18 12:00 04/04/18 12:00 04/04/18 12:00 General: Alert, In no apparent distress, Oriented x3, Cooperative HEENT: Atraumatic Neck: Supple Respiratory: Clear to auscultation bilaterally, Normal air movement Cardiovascular: Normal pulses, Regular rate/rhythm Gastrointestinal: Normal bowel sounds, Soft and benign, Non-distended, No tenderness, No masses, No rebound, No guarding Musculoskeletal: No erythema, No tenderness, No warmth Integumentary: No tenderness/swelling, No erythema, No warmth, No cyanosis Neurological: Normal speech, Normal strength at 5/5 x4 extr, Normal tone, Normal affect Lymphatics: No axilla or inguinal lymphadenopathy Laboratory Data at Discharge: WBC 5.9 K/uL (4.3-10.9) 04/04/18 05:35 Hgb 10.9 g/dL (13.6-17.9) L 04/04/18 05:35 Hct 30.8 % (39.6-49.0) L 04/04/18 05:35 Plt Count 232 K/uL (152-406) 04/04/18 05:35 PT 12.3 SECONDS (9.5-12.5) 04/03/18 17:31 INR 1.04 04/03/18 17:31 Sodium 144 mmol/L (136-145) 04/04/18 05:35 Potassium 4.1 mmol/L (3.5-5.1) 04/04/18 05:35 BUN 26 mg/dL (7-18) H 04/04/18 05:35 Creatinine 1.20 mg/dL (0.55-1.3) 04/04/18 05:35 Glucose 99 mg/dL (74-106) 04/04/18 05:35 Magnesium 1.9 mg/dL (1.8-2.4) 04/04/18 05:35 Total Bilirubin 0.4 mg/dL (0.2-1.0) 04/04/18 05:35 AST 18 U/L (15-37) 04/04/18 05:35 ALT 17 U/L (12-78) 04/04/18 05:35 Alkaline Phosphatase 73 U/L (45-117) 04/04/18 05:35 Troponin I < 0.02 ng/mL (0.0-0.045) 04/04/18 09:20 Triglycerides 108 mg/dL (<150) 04/04/18 05:35 Cholesterol 154 mg/dL (<200) 04/04/18 05:35 HDL Cholesterol 36 mg/dL (40-60) L 04/04/18 05:35 Cholesterol/HDL Ratio 4.28 04/04/18 05:35 Home Medications: RX: Cyanocobalamin (Vitamin B-12) [B-12] 1 gtt PO DAILY 12/05/17 RX: Montelukast [Singulair*] 10 mg PO DAILY 12/05/17 RX: Tamsulosin [Flomax*] 0.4 mg PO BEDTIME 12/05/17 RX: Cholecalciferol (Vitamin D3) [Vitamin D3] 5,000 unit PO BID 12/06/17 Ferrous Sulfate [Iron] 325 mg PO DAILY #30 tablet 04/04/18 RX: Acetaminophen [Tylenol*] 2 tab PO Q4HP PRN 04/04/18 RX: Aspirin Chewable [Aspirin Chewable*] 81 mg PO DAILY 04/04/18 RX: Atorvastatin Calcium [Lipitor] 80 mg PO BEDTIME #30 tab 04/04/18 RX: Clopidogrel Bisulfate [Plavix*] 75 mg PO DAILY #30 tablet 04/04/18 RX: Docusate [Colace Cap*] 100 mg PO DAILY 04/04/18 RX: Donepezil [Aricept*] 5 mg PO BEDTIME 04/04/18 RX: Folic Acid 1 mg PO DAILY 04/04/18 RX: Metoprolol Tartrate [Lopressor*] 25 mg PO BID 6AM 6PM #60 tab 04/04/18 RX: Polyethylene Glycol 3350 [Miralax] 17 gm PO BID PRN 04/04/18 New Medications: Ferrous Sulfate [Iron] 325 mg PO DAILY #30 tablet RX: Atorvastatin Calcium [Lipitor] 80 mg PO BEDTIME #30 tab RX: Clopidogrel Bisulfate [Plavix*] 75 mg PO DAILY #30 tablet RX: Metoprolol Tartrate [Lopressor*] 25 mg PO BID 6AM 6PM #60 tab Patient Discharge Instructions: 1. Patient will need a follow up with PCP in 1 week to follow up this hospitalization. 2. Patient presented with slurred speech and right facial droop. Patient with history of previous CVA. CT scan showed no acute stroke. Patient presented to the ER without any symptoms. Symptoms have resolved. Neurology was consulted. Echocardiogram unremarkable with EF of 60%. Carotid Doppler showed no acute stenosis. MRI was not done since the patient has a pacemaker. Neurology recommended that the patient add Plavix. At discharge he will continue with aspirin 81 mg daily and Plavix 75 mg daily. Recommendation is to continue with his other medications. Recommendations for the patient to follow up with neurology in 1 week to monitor his progress. Neurology will consider getting MRI at a higher level of care center that would be able to do MRI scan with pacemaker. 3. Patient has hypertension. Medications were adjusted due to renal insufficiency and low blood pressure. Patient previously on hydrochlorothiazide, losartan and metoprolol. Patient did well with metoprolol only at a lower dose. At discharge he will continue with metoprolol 25 mg 1 pill twice daily. Recommendation to keep blood pressure less than 150/80. Please note at discharge hydrochlorothiazide, losartan have been discontinued. Metoprolol has been decreased from 100 mg twice daily to 25 mg 1 pill twice daily. Further adjustment may be required. 4. Patient presented with renal insufficiency likely related to medication particularly hydrochlorothiazide and losartan. Patient received IV fluids. Improvement of renal function was noted at discharge. Patient was evaluated for possible UTI. Patient with history of UTI in the past. Patient did not have any pain with urination, hematuria, or fever. Patient found to have asymptomatic bacteriuria. No indication for treatment at this time. This can be followed up as an outpatient. UTI prevention will need to be enforced. Medications were adjusted per renal function. 5. Patient has hyperlipidemia. LDL 96. Recommendation is to continue with Lipitor 80 mg daily. 6. Patient has a history of iron deficiency anemia. At discharge he will continue with iron supplementation, B12 and folic acid supplementation. At discharge she will continue with iron 325 mg 1 pill daily, B12 vitamin 1 pill daily and folic acid 1 mg daily. Recommendation is to recheck lab-CBC in 1-2 weeks to monitor his progress. 7. Patient has BPH. Patient continue with Flomax 0.4 mg daily. 8. Patient has dementia. Patient will continue with Aricept 5 mg daily. Diet: AHA Activity: Fall precautions Time spent managing pt's care (in minutes): 55
[2018-04-04 16:05] VITALS: BP 133/76; TEMP 98
--- NOTE | 2018-04-04 18:45 | CON ---
Reason For Consultation: Called by Dr. Harrell because of transient ischemic attack. History Of Present Illness: Mr. Lancaster is a 72-year-old patient with multiple stroke risk factor s including diabetes mellitus type 2, hypertension, atrial fibrillation, actually with decreased hear t rate, status post pacemaker placement of the heart on 10 of December, who had at the time cardioembo lic event from which he recovered very well. On the 03 of April, that is yesterday, the patient had a followup head CT scan around 2:30 in the afternoon and was doing well. However, later about 4:30, he developed sudden onset right facial weakness along with slurred speech and difficulty getting josef e words out. The patient's brought him into the emergency room, however, the patient symptoms b rahul to resolve and by the time he arrived at the emergency room, he said that there were very little symptoms. However, it should be noted that in the emergency room, it is documented that he did have some right facial drooping, but there was no numbness, tingling in the rest of his face and no weakn ess in the arms and legs. The patient did improve back to his baseline again within about [address] scan done in the emergency room around 5:32 showed no acute intracranial abnormalities and a brain MRI was not done at that time because the patient does have a pacemaker. Carotid artery ult rasound showed no evidence of hemodynamically significant stenosis, but there was mild plaque in both carotid arteries. His electrocardiogram showed an atrial sensed ventricular paced rhythm with prolo nged AV conduction. His echocardiogram on the , that is the following day was a normal study exce pt for impaired left ventricular relaxation. Ejection fraction 60-65%. Initially blood work includi ng urinalysis suggests possibility of urinary tract infection with positive nitrites, greater than 50 bacteria, 3+ esterase. Also the patient was found to be mildly dehydrated with creatinine of 1.5. INR was normal at 1.04. He was treated with a gram of Rocephin in the emergency room, was placed on aspirin 81 mg daily, which the patient said he had been taking off and on and Plavix was added, 75 mg daily along with a DVT prophylaxis of Lovenox and high dose statin of Lipitor 80 mg at bedtime. Past Medical History: As indicated above including history of alcohol use and abuse, hypertension, p rior stroke with good recovery, benign prostatic hypertrophy. Allergies: NO KNOWN DRUG ALLERGIES. Medications: At home, Lipitor 10 mg daily, Plavix 75 mg daily, which patient said he was not taking on a regular basis, vitamin B12 5000 mcg daily, folate 1 mg daily, losartan-hydrochlorothiazide 100-1 2.5 daily, Glucophage 500 mg twice daily, Singulair 10 mg daily, Flomax 0.4 mg daily, coenzyme Q10 20 0 mg daily, Librium 25 mg twice daily, vitamin D3 1000 units daily, and Toprol 50 mg twice daily. Family History: Noncontributory. Surgical History: Testicular surgery. Social History: The patient drank heavily in the past and smoked as well. No current alcohol or tob acco use. Lives at home with family. Review of Systems: He denies any recent fevers, chills, nausea, vomiting, myalgias, arthralgias, weight change, rash, he adache. No psychiatric complaints. No gastrointestinal or genitourinary issues. Physical Examination: Vital Signs: Blood pressure 133/76, pulse 85, respiratory rate 14, temperature 98, oxygen saturation 96%. Weight 215 pounds. Height 6 feet. BMI 29.2 General: Mr. Lancaster is resting comfortably, in no acute distress. HEENT: He is normocephalic, atraumatic. Sclerae anicteric. Oropharynx is pink and moist. Neck: Supple. Chest: Clear. Heart: Regular. Extremities: show no edema, clubbing, or cyanosis. Neurologic: He is alert and oriented to person, place, time, and situation. No cranial nerve defici ts on 2 through 12. No motor deficits in upper and lower extremities. Sensation; stocking-glove los s to light touch and temperature. Reflexes 1+ upper and lower extremities except the right heel. Co ordination intact in upper and lower extremities. Gait, good stance and stride. Laboratory Studies: White blood cell count 5.9, hemoglobin 10.9, hematocrit 30.8, and platelets 232. Chemistries; sodium 140, potassium 4.3, chloride 108, carbon dioxide 24, BUN 26, creatinine 1.2. T otal iron low at 46, total iron binding capacity low at 242, transferrin low at 173%, percent transfe rrin saturation low at 19. Liver function studies are normal. B12 levels elevated to 1765. His HDL is low at 36, LDL is 96, total cholesterol 154, triglycerides 108. T3 and T4 1.2, TSH 1.52. His ch olesterol to HDL ratio was 4.28. Assessment: Mr. Lancaster is a 72-year-old patient with multiple stroke risk factors, who has had a transient ischemic attack while taking aspirin, but not regularly. Plan: 1.Take aspirin 81 mg daily. 2.Plavix 75 mg daily. 3.High dose statin as indicated. 4.The patient is continued on his antihypertensive medications as indicated. 5.Continue with aggressive management of blood sugars. 6.Continue with treatment of possible urinary tract infection and follow up on cultures, which are p ending. 7.The patient may be discharged home and follow up with Dr. Muñoz's in clinic in 1 week. MILLICENT/NELA Voice ID: [id number] Report ID: [id number]
[2018-04-04] MEDS ORDERED: DONEPEZIL HCL 5 MG TAB PO SCH (21:00)
[2018-04-05] MEDS ORDERED: DOCUSATE NA 100 MG CAP PO SCH (09:00)
== END 2018-04-04 17:03 | disposition home or self-care (01) ==
LOC: ER 17:24 → ERHOLD 18:26 → 4TH 19:48
PROVIDERS: ADMIT Family Medicine; ATTEND Internal Medicine
DX: G45.9 Transient cerebral ischemic attack, unspecified (principal); E78.5 Hyperlipidemia, unspecified; I10 Essential (primary) hypertension; E11.9 Type 2 diabetes mellitus without complications; N28.9 Disorder of kidney and ureter, unspecified; D64.9 Anemia, unspecified; R82.71 Bacteriuria; F03.90 Unspecified dementia, unspecified severity, without behavioral disturbance, psychotic disturbance, mood disturbance, and anxiety; N40.0 Benign prostatic hyperplasia without lower urinary tract symptoms; Z86.73 Personal history of transient ischemic attack (TIA), and cerebral infarction without residual deficits; Z95.0 Presence of cardiac pacemaker
CPT/HCPCS: 36415; 70450; 71045; 80048; 80053; 80061; 81003; 81015; 82550; 82553; 82607; 82728; 82962; 83036; 83540; 83735; 84439; 84443; 84466; 84484; 85025; 85610; 87077; 87086; 87088; 87186; 93005; 93306; 93880; 97163; 99285; G0378; J0696; J1650; J7030

== ENCOUNTER 2018-06-18 15:19 | Observation (INO) | payer BC ==
--- OUTSIDE RECORDS SUMMARY | 2018-06-18 15:21 | XMS REPORT ---
:1945 [facility] Address [address] [place] [address] [address]. Bearden [address] [place] [address] Care Team Providers Name Role Phone UNKNOWN, REFERRING Primary Care Provider Unavailable Problems This patient has no known problems. Allergies, Adverse Reactions, Alerts This patient has no known allergies or adverse reactions. Medications This patient has no known medications. Encounters Start End Encounter Admission Attending Care Care Encounter Date/Time Date/Time Type Type Clinicians Facility Department ID 2017-07-21 2017-07-21 Emergency [id number] [id number] 18:06:00 18:06:00
[2018-06-18] MEDS ORDERED: NA CHLORIDE 0.9% 2,000 ML ONE (15:53)
[2018-06-18] MEDS ORDERED: THIAMINE 200 MG/2 ML INJ ONE (15:53)
[2018-06-18] MEDS ORDERED: MULTIVITAMINS 10 ML VIAL (INJ) IV ONE (15:54)
[2018-06-18] MEDS ORDERED: FOLIC ACID 5 MG/ML VIAL ONE (15:55)
[2018-06-18 16:09] LABS: Absolute Lymphocytes (CBC) 1.2 K/uL (0.7-4.9); Absolute Monocytes 0.7 K/uL (0.1-1.3); Basophils % 0.8 % (0-1.3); Eosinophils % 1.6 % (0-4.4); Hematocrit 34.5 % (39.6-49.0); Lymphocytes % 16.9 % (15.3-44.8); MCH 32.2 pg (27.0-35.0); MCV 93.3 fL (80-100); Monocytes % 9.4 % (3.3-12.3)
[2018-06-18 16:19] LABS: Protime INR 1.02
[2018-06-18] MEDS ORDERED: ACETAMINOPHEN 500 MG TAB PO PRN (16:35)
[2018-06-18] MEDS ORDERED: ONDANSETRON 4 MG/2 ML VIAL IV PRN (16:35)
[2018-06-18] MEDS ORDERED: SODIUM CHLORIDE 0.9% 10ML INJ IV PRN (16:36)
--- NOTE | 2018-06-18 16:36 | EDPHYS ---
Physician Documentation [facility] Name: Jose Ramon Lancaster Age: 72 yrs Sex: Male : 1945 Arrival Date: 06/18/2018 Time: 15:29 Bed 6 Private MD: ED Physician Pérez Polanco HPI: 06/18 16:23 This 72 yrs old Male presents to ER via EMS with complaints of Fall Injury, jae Altered Mental Status. 16:23 Details of fall: The patient fell from an upright position, while standing, while jae walking. Onset: The symptoms/episode began/occurred just prior to arrival. Associated injuries: The patient sustained right arm, abrasion, contusion. Severity of symptoms: At their worst the symptoms were mild, moderate, in the emergency department the symptoms are unchanged. The patient has experienced similar episodes in the past, several times. Historical: - Allergies: 16:18 No Known Allergies; hb - Home Meds: 16:18 aspirin 81 mg Oral chew 1 tab once daily [Active]; atorvastatin 10 mg Oral tab 1 tab hb once daily [Active]; folic acid 1 mg Oral tab 1 tab once daily [Active]; hydrochlorothiazide 12.5 mg Oral tab 1 tab once daily [Active]; losartan 100 mg Oral tab 1 tab once daily [Active]; Metoprolol Tartrate Oral [Active]; Miralax Oral [Active]; montelukast 10 mg Oral tab 1 tab once daily [Active]; multivitamin Oral [Active]; tamsulosin 0.4 mg Oral cp24 1 cap once daily [Active]; vitamin X78-[id number] acid Oral [Active]; Vitamin D3 5,000 unit Oral tab twice a day [Active]; 16:37 donepezil 10 mg oral tab twice a day [Active]; hb - PMHx: 16:18 Alcoholism; Diabetes - NIDDM; EMBOLISM; Hypertension; left eye vision is bad since hb ; TIA; - PSHx: 16:18 Pacemaker; hb - Immunization history: Last tetanus immunization: < 10 years ago. - Social history:: Smoking status: Patient/guardian denies using tobacco. - Ebola Screening: : No symptoms or risks identified at this time. ROS: 16:24 Constitutional: Negative for fever, chills, and weight loss, Eyes: Negative for injury, jae pain, redness, and discharge, ENT: Negative for injury, pain, and discharge, Neck: Negative for injury, pain, and swelling, Cardiovascular: Negative for chest pain, palpitations, and edema, Respiratory: Negative for shortness of breath, cough, wheezing, and pleuritic chest pain, Abdomen/GI: Negative for abdominal pain, nausea, vomiting, diarrhea, and constipation, Back: Negative for injury and pain, : Negative for injury, bleeding, discharge, and swelling, Skin: Negative for injury, rash, and discoloration, Psych: Negative for depression, anxiety, suicide ideation, homicidal ideation, and hallucinations, Allergy/Immunology: Negative for hives, rash, and allergies, Endocrine: Negative for neck swelling, polydipsia, polyuria, polyphagia, and marked weight changes, Hematologic/Lymphatic: Negative for swollen nodes, abnormal bleeding, and unusual bruising. 16:24 MS/extremity: Positive for abrasion, pain, of the right arm. Exam: 16:24 Constitutional: This is a well developed, well nourished patient who is awake, alert, jae and in no acute distress. Head/Face: Normocephalic, atraumatic. Eyes: Pupils equal round and reactive to light, extra-ocular motions intact. Lids and lashes normal. Conjunctiva and sclera are non-icteric and not injected. Cornea within normal limits. Periorbital areas with no swelling, redness, or edema. ENT: Nares patent. No nasal discharge, no septal abnormalities noted. Tympanic membranes are normal and external auditory canals are clear. Oropharynx with no redness, swelling, or masses, exudates, or evidence of obstruction, uvula midline. Mucous membranes moist. Neck: Trachea midline, no thyromegaly or masses palpated, and no cervical lymphadenopathy. Supple, full range of motion without nuchal rigidity, or vertebral point tenderness. No Meningismus. Chest/axilla: Normal chest wall appearance and motion. Nontender with no deformity. No lesions are appreciated. Cardiovascular: Regular rate and rhythm with a normal S1 and S2. No gallops, murmurs, or rubs. Normal PMI, no JVD. No pulse deficits. Respiratory: Lungs have equal breath sounds bilaterally, clear to auscultation and percussion. No rales, rhonchi or wheezes noted. No increased work of breathing, no retractions or nasal flaring. Abdomen/GI: Soft, non-tender, with normal bowel sounds. No distension or tympany. No guarding or rebound. No evidence of tenderness throughout. Back: No spinal tenderness. No costovertebral tenderness. Full range of motion. Male : Normal genitalia with no discharge or lesions. MS/ Extremity: Pulses equal, no cyanosis. Neurovascular intact. Full, normal range of motion. Psych: Awake, alert, with orientation to person, place and time. Behavior, mood, and affect are within normal limits. 16:24 Skin: injury, abrasion(s), small abrasion noted, skin tears. 16:24 Neuro: Orientation: is normal, appropriate for stated age, no acute changes, Mentation: is normal, no acute changes, slow to respond, Memory: is normal, appropriate for stated age, no acute changes, Cranial nerves: grossly normal, is grossly normal based on the patient's age, no acute changes, Cerebellar function: is grossly normal based on the patient's age, Gait: not tested. Deep tendon reflexes are 2+ (normal) in the bilateral brachioradialis, bicep, tricep and patellar and Achilles tendons, Babinski testing is normal. Vital Signs: 15:21 BP 90 / 58; Pulse 62; Resp 20; Temp 98.2; Pulse Ox 100% on R/A; Pain 0/10; hb 15:40 Pulse Ox 90% on R/A; hb 16:00 BP 91 / 57; Pulse 60; Resp 15; Pulse Ox 96% on 2 lpm NC; hb 17:00 BP 92 / 56; Pulse 60; Resp 17; Pulse Ox 97% on 2 lpm NC; tw2 17:00 BP 121 / 73; Pulse 60; Resp 18; Pulse Ox 99% on 2 lpm NC; tw2 18:00 BP 126 / 76; Pulse 60; Resp 16; Pulse Ox 100% on 2 lpm NC; hb Buck Coma Score: 16:00 Eye Response: spontaneous(4). Verbal Response: confused(4). Motor Response: obeys hb commands(6). Total: 14. Trauma Score (Adult): 15:20 Eye Response: spontaneous(1); Verbal Response: confused(1); Motor Response: obeys hb commands(2); Systolic BP: > 89 mm Hg(4); Respiratory Rate: 10 to 29 per min(4); Buck Score: 14; Trauma Score: 12 16:00 Eye Response: spontaneous(1); Verbal Response: confused(1); Motor Response: obeys hb commands(2); Systolic BP: > 89 mm Hg(4); Respiratory Rate: 10 to 29 per min(4); Cascade Score: 14; Trauma Score: 12 17:00 Eye Response: spontaneous(1); Verbal Response: confused(1); Motor Response: obeys hb commands(2); Systolic BP: > 89 mm Hg(4); Respiratory Rate: 10 to 29 per min(4); Buck Score: 14; Trauma Score: 12 18:00 Eye Response: spontaneous(1); Verbal Response: confused(1); Motor Response: obeys hb commands(2); Systolic BP: > 89 mm Hg(4); Respiratory Rate: 10 to 29 per min(4); Cascade Score: 14; Trauma Score: 12 MDM: 15:30 Patient medically screened. [facility] 16:40 Data reviewed: vital signs, nurses notes, lab test result(s), EKG, radiologic studies, [facility] CT scan, plain films. 06/18 15:32 Order name: Basic Metabolic Panel; Complete Time: 17:[address] [facility] 06/18 15:32 Order name: CBC with Diff; Complete Time: 16: [facility] 06/18 15:32 Order name: LFT's; Complete Time: 17:[address] [facility] 06/18 15:32 Order name: Magnesium; Complete Time: 17:[address] [facility] 06/18 15:32 Order name: NT PRO-BNP; Complete Time: 17:[address] [facility] 06/18 15:32 Order name: PT-INR; Complete Time: 16:[address] [facility] 06/18 15:32 Order name: Troponin (emerg Dept Use Only); Complete Time: 17:[address] [facility] 06/18 15:32 Order name: Acetaminophen; Complete Time: 17:[address] [facility] 06/18 15:32 Order name: ETOH Level; Complete Time: 16:[address] [facility] 06/18 15:32 Order name: Ptt, Activated; Complete Time: 16: [facility] 06/18 15:32 Order name: Salicylate; Complete Time: 17:[address] [facility] 06/18 15:32 Order name: Urine Drug Screen; Complete Time: 18:[address] [facility] 06/18 16:39 Order name: Basic Metabolic Panel [facility] 06/18 16:39 Order name: Basic Metabolic Panel [facility] 06/18 15:32 Order name: XRAY Chest (1 view); Complete Time: 17:[address] [facility] 06/18 15:32 Order name: CT Traumagram (Head C Spine CAP W Con) [facility] 06/18 16:39 Order name: Troponin I [facility] 06/18 16:39 Order name: Troponin I; Complete Time: 18:06 [facility] 06/18 16:39 Order name: Troponin I [facility] 06/18 16:40 Order name: CBC with Automated Diff [facility] 06/18 16:40 Order name: CBC with Automated Diff [facility] 06/18 16:41 Order name: Chest Single View [facility] 06/18 16:41 Order name: Chest Single View [facility] 06/18 17:04 Order name: INCENTIVE SPIROMETRY [facility] 06/18 17:40 Order name: CT; Complete Time: 18:06 [facility] 06/18 15:32 Order name: EKG; Complete Time: 15:[address] [facility] 06/18 15:32 Order name: Cardiac monitoring; Complete Time: 16:[address] [facility] 06/18 15:32 Order name: EKG - Nurse/Tech; Complete Time: 16:[address] [facility] 06/18 15:32 Order name: IV Saline Lock; Complete Time: 16:[address] [facility] 06/18 15:32 Order name: Labs collected and sent; Complete Time: 16:[address] [facility] 06/18 15:32 Order name: O2 Per Protocol; Complete Time: 16:[address] [facility] 06/18 15:32 Order name: O2 Sat Monitoring; Complete Time: 16:[address] [facility] 06/18 15:32 Order name: Urine Dipstick-Ancillary (obtain specimen); Complete Time: 18:[address] [facility] 06/18 16:23 Order name: Wound Care; Complete Time: 16:[address] [facility] 06/18 16:38 Order name: Consistent Carb (ADA) [address] [facility] 06/18 16:38 Order name: EKG Electrocardiogram [facility] 06/18 16:38 Order name: EKG Electrocardiogram [facility] 06/18 16:38 Order name: EKG Electrocardiogram [facility] 06/18 16:38 Order name: EKG Electrocardiogram [facility] Administered Medications: 15:45 Drug: Thiamine 100 mg Route: IV; Rate: bolus; Site: left antecubital; hb 17:50 Follow up: Response: No adverse reaction; IV Status: Completed infusion tw2 15:45 Drug: NS 0.9% 1000 ml Route: IV; Rate: 1 bolus; Site: left antecubital; hb 18:07 Follow up: IV Status: Completed infusion; IV Intake: 1000ml tw2 15:45 Drug: Banana Bag - (NS 0.9% 1000 ml, foLIC Acid 1 mg, Thiamine 100 mg, Multivitamin 1 hb amp) Route: IV; Rate: 125 ml/hr; Site: left antecubital; 18:07 Follow up: IV Status: Infusion continued upon admission tw2 18:12 Drug: Tetanus-Diphtheria Toxoid Adult 0.5 ml {Yard Attendant: [employer]. Exp: tw2 06/21/2020. Lot #: [id number]. } Route: IM; Site: right deltoid; 18:13 Follow up: Response: No adverse reaction tw2 18:31 Not Given (PT OFF UNIT): Zosyn 3.375 grams IVPB once over 60 mins; (mix in NS 100 mL) hb Point of Care Testing: Blood Glucose: 18:02 Blood Glucose: 89 mg/dL; tw2 Ranges: Critical Glucose Levels:Adult <50 mg/dl or >400 mg/dl <40 mg/dl or >180 mg/dl Disposition: 06/18/18 16:32 Hospitalization ordered by Jm [facility] for Observation. Preliminary diagnosis are Fall due to bumping against object, Alcohol abuse with intoxication, Altered mental status, unspecified, Hypotension, Diverticular disease of intestine, Diverticulitis of large intestine without perforation or abscess without bleeding. - Bed requested for Telemetry/MedSurg (observation). - Status is Observation. tw2 - Condition is Fair. - Problem is new. - Symptoms have improved. UTI on Admission? No Signatures: Dispatcher [employer] EDOH Pérez Polanco MD MD cha Williams, Irene RN RN iw Clari Patrick RN RN Felicitas Villar RN RN tw2 Corrections: (The following items were deleted from the chart) 16:37 16:18 Home Meds: Colace 100 mg Oral cap 1 cap once daily; hb hb 16:37 16:18 Home Meds: donepezil 5 mg Oral tab 1 tab once daily; hb hb 17:30 16:32 Hospitalization Ordered by Jm [facility] MD for Observation. Preliminary diagnosis iw is Fall due to bumping against object; Alcohol abuse with intoxication; Altered mental status, unspecified; Hypotension. Bed requested for Telemetry/MedSurg (observation). Status is Observation. Condition is Fair. Problem is new. Symptoms have improved. UTI on Admission? No. aje 18:08 17:30 06/18/2018 16:32 Hospitalization Ordered by Jm [facility] MD for Observation. jae Preliminary diagnosis is Fall due to bumping against object; Alcohol abuse with intoxication; Altered mental status, unspecified; Hypotension. Bed requested for Telemetry/MedSurg (observation). Status is Observation. Condition is Fair. Problem is new. Symptoms have improved. UTI on Admission? No. iw 18:13 18:08 06/18/2018 16:32 Hospitalization Ordered by Jm [facility] MD for Observation. tw2 Preliminary diagnosis is Fall due to bumping against object; Alcohol abuse with intoxication; Altered mental status, unspecified; Hypotension; Diverticular disease of intestine; Diverticulitis of large intestine without perforation or abscess without bleeding. Bed requested for Telemetry/MedSurg (observation). Status is Observation. Condition is Fair. Problem is new. Symptoms have improved. UTI on Admission? No. jae
--- NOTE | 2018-06-18 16:36 | ER ---
Nurse's Notes [facility] Name: Jose Ramon Lancaster Age: 72 yrs Sex: Male : 1945 Arrival Date: 06/18/2018 Time: 15:29 Bed 6 Private MD: Diagnosis: Fall due to bumping against object;Alcohol abuse with intoxication;Altered mental status, unspecified;Hypotension;Diverticular disease of intestine;Diverticulitis of large intestine without perforation or abscess without bleeding Presentation: 06/18 15:20 Presenting complaint: EMS states: Found down in front yard by , intoxicated, does hb not remember going outside. Pt reported drinking 3 large mixed drinks. Denies LOC. Takes Plavix. Hx CVA, HTN. Two skin tears noted to right elbow. Care prior to arrival: Medication(s) given: Normal saline infusion, 200 ml IV initiated. 20 GA, in the left hand. Mechanism of Injury: Fall from standing position. Trauma event details: Injury occurred in the [facility], Injury occurred: at home. Injury occurred: June 18, 2018. 15:20 Acuity: TOMMY 2 hb 15:20 Method Of Arrival: EMS: [facility] 15:20 Transition of care: patient was not received from another setting of care. Onset of hb symptoms was June 18, 2018. Initial Sepsis Screen: Does the patient meet any 2 criteria? No. Patient's initial sepsis screen is negative. Does the patient have a suspected source of infection? No. Patient's initial sepsis screen is negative. 15:45 Risk Assessment: Do you want to hurt yourself or someone else? Patient reports no hb desire to harm self or others. Trauma Activation: Alert Physician: ED Physician; Name: ; Notified At: ; Arrived At: Physician: General Surgeon; Name: ; Notified At: ; Arrived At: Physician: Radiology; Name: ; Notified At: ; Arrived At: Physician: Respiratory; Name: ; Notified At: ; Arrived At: Physician: Lab; Name: ; Notified At: ; Arrived At: Historical: - Allergies: 16:18 No Known Allergies; hb - Home Meds: 16:18 aspirin 81 mg Oral chew 1 tab once daily [Active]; atorvastatin 10 mg Oral tab 1 tab hb once daily [Active]; folic acid 1 mg Oral tab 1 tab once daily [Active]; hydrochlorothiazide 12.5 mg Oral tab 1 tab once daily [Active]; losartan 100 mg Oral tab 1 tab once daily [Active]; Metoprolol Tartrate Oral [Active]; Miralax Oral [Active]; montelukast 10 mg Oral tab 1 tab once daily [Active]; multivitamin Oral [Active]; tamsulosin 0.4 mg Oral cp24 1 cap once daily [Active]; vitamin N11-mhkqz acid Oral [Active]; Vitamin D3 5,000 unit Oral tab twice a day [Active]; 16:37 donepezil 10 mg oral tab twice a day [Active]; hb - PMHx: 16:18 Alcoholism; Diabetes - NIDDM; EMBOLISM; Hypertension; left eye vision is bad since hb ; TIA; - PSHx: 16:18 Pacemaker; hb - Immunization history: Last tetanus immunization: < 10 years ago. - Social history:: Smoking status: Patient/guardian denies using tobacco. - Ebola Screening: : No symptoms or risks identified at this time. Screenin:35 Abuse screen: Denies threats or abuse. Denies injuries from another. Nutritional hb screening: No deficits noted. Tuberculosis screening: No symptoms or risk factors identified. Fall Risk Total Bass Fall Scale indicates High Risk Score (45 or more points). Fall prevention measures have been instituted. Side Rails Up X 2 Frequent Obs/Assessments Occuring Family Present and informed to notify staff if the need to leave the bedside As available patient and family educated on Fall Prevention Program and Strategies. Primary Survey: 15:34 A: Airway: patent. Breathing/Chest: Respiratory pattern: regular, Respiratory effort: hb spontaneous, mildly labored Breath sounds: clear, bilaterally. Chest inspection: symmetrical rise and fall of the chest. Circulation: Skin color: pink, Skin temperature: warm, dry. Disability Alert. 16:35 Reassessment Airway Airway Patent Breathing/Chest Respiratory pattern Regular tw2 Respiratory effort Spontaneous Unlabored Breath sounds Clear Chest inspection Symmetrical Circulation Heart tones Present Disability Alert. 17:30 Reassessment Airway Airway Patent Breathing/Chest Respiratory pattern Regular hb Respiratory effort Spontaneous Unlabored Breath sounds Clear Chest inspection Symmetrical Circulation Color [place] Temperature Warm Dry Disability Alert. Secondary Survey: 15:35 HEENT: No deficits noted. Gastrointestinal: No deficits noted. : No deficits noted. hb No signs and/or symptoms were reported regarding the genitourinary system. Musculoskeletal: No deficits noted. No signs and/or symptoms reported regarding the musculoskeletal system. Injury Description: Skin tears sustained to right elbow. Assessment: 15:45 General: Appears in no apparent distress. Behavior is calm, cooperative, Smells of hb alcohol. Pain: Denies pain. Neuro: Level of Consciousness is awake, obeys commands, confused, Oriented to person, place. EENT: No signs and/or symptoms were reported regarding the EENT system. Cardiovascular: Heart tones S1 S2 present Capillary refill < 3 seconds Patient's skin is warm and dry. Respiratory: Airway is patent Trachea midline Respiratory effort is even, unlabored, Respiratory pattern is regular, symmetrical, Breath sounds are clear bilaterally. GI: No signs and/or symptoms were reported involving the gastrointestinal system. : No signs and/or symptoms were reported regarding the genitourinary system. Derm: Skin is pink, warm \T\ dry. Musculoskeletal: No signs and/or symptoms reported regarding the musculoskeletal system. Injury Description: skin tears x 2 to right elbow. 17:00 Reassessment: Patient appears in no apparent distress at this time. No changes from tw2 previously documented assessment. Patient and/or family updated on plan of care and expected duration. Pain level reassessed. 17:40 Reassessment: Patient appears in no apparent distress at this time. No changes from hb previously documented assessment. Patient and/or family updated on plan of care and expected duration. Pain level reassessed. 18:02 Reassessment: Patient appears in no apparent distress at this time. No changes from tw2 previously documented assessment. Patient and/or family updated on plan of care and expected duration. Pain level reassessed. Dr. [facility] at bedside at this time. Vital Signs: 15:21 BP 90 / 58; Pulse 62; Resp 20; Temp 98.2; Pulse Ox 100% on R/A; Pain 0/10; hb 15:40 Pulse Ox 90% on R/A; hb 16:00 BP 91 / 57; Pulse 60; Resp 15; Pulse Ox 96% on 2 lpm NC; hb 17:00 BP 92 / 56; Pulse 60; Resp 17; Pulse Ox 97% on 2 lpm NC; tw2 17:00 BP 121 / 73; Pulse 60; Resp 18; Pulse Ox 99% on 2 lpm NC; tw2 18:00 BP 126 / 76; Pulse 60; Resp 16; Pulse Ox 100% on 2 lpm NC; hb [place] Coma Score: 16:00 Eye Response: spontaneous(4). Verbal Response: confused(4). Motor Response: obeys hb commands(6). Total: 14. Trauma Score (Adult): 15:20 Eye Response: spontaneous(1); Verbal Response: confused(1); Motor Response: obeys hb commands(2); Systolic BP: > 89 mm Hg(4); Respiratory Rate: 10 to 29 per min(4); Buck Score: 14; Trauma Score: 12 16:00 Eye Response: spontaneous(1); Verbal Response: confused(1); Motor Response: obeys hb commands(2); Systolic BP: > 89 mm Hg(4); Respiratory Rate: 10 to 29 per min(4); Buck Score: 14; Trauma Score: 12 17:00 Eye Response: spontaneous(1); Verbal Response: confused(1); Motor Response: obeys hb commands(2); Systolic BP: > 89 mm Hg(4); Respiratory Rate: 10 to 29 per min(4); Buck Score: 14; Trauma Score: 12 18:00 Eye Response: spontaneous(1); Verbal Response: confused(1); Motor Response: obeys hb commands(2); Systolic BP: > 89 mm Hg(4); Respiratory Rate: 10 to 29 per min(4); Buck Score: 14; Trauma Score: 12 ED Course: 15:29 Patient arrived in ED. hb 15:30 Pérez Polanco MD is Attending Physician. jae 15:30 Thermoregulation: warm blanket given to patient. hb 15:34 Triage completed. hb 15:35 Clari Patrick, RN is Primary Nurse. hb 15:45 EKG done, by quality control tech. reviewed by Pérez Polanco MD. sm3 15:45 Patient has correct armband on for positive identification. Placed in gown. Bed in low hb position. Call light in reach. Side rails up X2. 15:54 X-ray completed. Portable x-ray completed in exam room. Patient tolerated procedure ml well. 15:56 XRAY Chest (1 view) In Process Unspecified. EDMS 16:00 Arm band placed on right wrist. hb 16:21 Oxygen administration via nasal cannula \T\ 2L/min. hb 16:27 Radiology exam delayed due to lab results not completed at this time. (BUN/Creatinine). nj 16:32 Jm [facility] MD is Hospitalizing Provider. jae 16:34 Radiology exam delayed due to lab results not completed at this time. (BUN/Creatinine). nj 17:20 CT completed. Patient tolerated procedure well. Patient moved back from CT. nj 18:03 No provider procedures requiring assistance completed. Patient admitted, IV remains in tw2 place. Administered Medications: 15:45 Drug: Thiamine 100 mg Route: IV; Rate: bolus; Site: left antecubital; hb 17:50 Follow up: Response: No adverse reaction; IV Status: Completed infusion tw2 15:45 Drug: NS 0.9% 1000 ml Route: IV; Rate: 1 bolus; Site: left antecubital; hb 18:07 Follow up: IV Status: Completed infusion; IV Intake: 1000ml tw2 15:45 Drug: Banana Bag - (NS 0.9% 1000 ml, foLIC Acid 1 mg, Thiamine 100 mg, Multivitamin 1 hb amp) Route: IV; Rate: 125 ml/hr; Site: left antecubital; 18:07 Follow up: IV Status: Infusion continued upon admission tw2 18:12 Drug: Tetanus-Diphtheria Toxoid Adult 0.5 ml {Storage Specialist: [employer]. Exp: tw2 06/21/2020. Lot #: [id number]. } Route: IM; Site: right deltoid; 18:13 Follow up: Response: No adverse reaction tw2 18:31 Not Given (PT OFF UNIT): Zosyn 3.375 grams IVPB once over 60 mins; (mix in NS 100 mL) hb Point of Care Testing: Blood Glucose: 18:02 Blood Glucose: 89 mg/dL; tw2 Ranges: Intake: 15:40 PO: 0ml; Total: 0ml. hb 18:07 IV: 1000ml; Total: 1000ml. tw2 Outcome: 16:32 Decision to Hospitalize by Provider. [facility] 17:50 Condition: stable tw2 17:50 Patient's length of stay in the Emergency Department was greater than 2 hours. d/t being admittedPatient's length of stay extended due to 18:03 Admitted to Med/surg accompanied by tech, via stretcher, Report called to JULI Vick tw2 18:03 Instructed on the need for admit. tw2 18:13 Patient left the ED. tw2 Signatures: Dispatcher [employer] EDMS Pérez Polanco MD MD cha Lopez, Melissa ml Baxter, Heather, RN RN Felicitas Miller RN RN tw2 Eligio Marcano Shakira 3 Corrections: (The following items were deleted from the chart) 16:37 16:18 Home Meds: Colace 100 mg Oral cap 1 cap once daily; hb 16:37 16:18 Home Meds: donepezil 5 mg Oral tab 1 tab once daily; [facility] 18:04 18:03 Admitted to Med/surg accompanied by nurse, via stretcher, Report called to tw2 JULI Vick tw2
--- NOTE | 2018-06-18 16:38 | RAD REPORT ---
EXAM DESCRIPTION: RAD - Chest Single View - 06/18/2018 3:55 pm CLINICAL HISTORY: Altered mental status, shortness of breath COMPARISON: April 03 TECHNIQUE: AP portable chest image was obtained 1550 hours . FINDINGS: Lung volumes are low. Right base opacification is favored to be atelectasis rather than in filtrate. Lung markings are accentuated by the poor inspiratory effort. Significant failure or volume overload are doubtful. Heart and vasculature are normal. No measurable pleural effusion and no pneum othorax. No gross bony abnormality seen. No acute aortic findings suspected. IMPRESSION: Shallow inspiration film with right base atelectasis. Right base infiltrate is unlikely. Repeat imaging can be performed with improved inspiratory effort i f there are right lung base clinical concerns.
[2018-06-18 16:48] LABS: ALT/SGPT 18 U/L (12-78); AST/SGOT 15 U/L (15-37); Albumin 3.4 g/dL (3.4-5.0); Alkaline Phosphatase 89 U/L (45-117); BUN Blood Urea Nitrogen 20 mg/dL (7-18); Bicarbonate 18 mmol/L (21-32); Bilirubin Direct 0.2 mg/dL (0-0.2); Bilirubin Total 0.4 mg/dL (0.2-1.0); Glucose Level 125 mg/dL (74-106); NT PRO-BNP 579 pg/mL (<125); Potassium 3.7 mmol/L (3.5-5.1); Protein, Total 6.4 g/dL (6.4-8.2); Sodium Level 140 mmol/L (136-145); Troponin (Emerg Dept Use Only) < 0.02 ng/mL (0.0-0.045)
[2018-06-18 17:36] LABS: Barbiturates NEGATIVE (NEGATIVE); Benzodiazepines NEGATIVE (NEGATIVE); Cocaine NEGATIVE (NEGATIVE); METHAMPHETAM NEGATIVE (NEGATIVE); Methadone NEGATIVE (NEGATIVE); Opiates NEGATIVE (NEGATIVE); Phencyclidine NEGATIVE (NEGATIVE); THC Cannibis NEGATIVE (NEGATIVE)
--- NOTE | 2018-06-18 17:39 | RAD REPORT ---
EXAM DESCRIPTION: CT - Head C Spine Cap Damien Olson - 06/18/2018 5:20 pm CLINICAL HISTORY: Fall, found down on ground, altered mental status COMPARISON: CT head March 2018, CT abdomen April 2016 TECHNIQUE: Axial [address] head images were obtained. Axial [address] cervical spine images were obtaine d with sagittal and coronal reconstruction images reviewed. During dynamic enhancement of 100mL non-i onic contrast, axial 5 mm images of the chest, abdomen and pelvis were obtained. All CT scans are performed using dose optimization technique as appropriate and may include automated exposure control or mA/KV adjustment according to patient size. FINDINGS: No intracranial hemorrhage, mass or edema. No midline shift or abnormal fluid collection. No acute cortical based infarction identifiable. There is a 15 millimeter area of encephalomalacia in the left parietal lobe that is stable from the comparison. Underlying atrophy and chronic ischemic c hanges are present. Ventricles are in proportion. Arterial and physiologic calcifications are present . Mastoid air cells and paranasal sinuses are clear. No skull fracture. Left-sided mandibular condyl es more anteriorly positioned. No fracture changes evident on this limited assessment. Tevin left menis cus is possible. Condyle was normally positioned on the March examination. CT cervical spine imaging shows normal height. There is straightening of the usual cervical lordosis. No subluxation abnormality seen. Disc space narrowing is present from C3-C7. Endplate spurring and u ncovertebral joint hypertrophy seen. Multilevel bony foraminal encroachment is seen. No fracture or a cute vertebral body finding in the cervical spine. No paraspinal mass or hematoma seen. Central canal detail is inherently limited. Concerns for traumatic disc herniation or traumatic cord injury can be further addressed with MR imaging. CT chest shows no pneumothorax, pulmonary contusion or pleural fluid collection. No mediastinal hemat josue and the aorta and pulmonary arteries are unremarkable. No chest will mass or abnormal axillary fi nding. The lateral right fourth and fifth ribs are fractured. Fracture line is somewhat indistinct. T here is no callus formation. Acute and subacute rib fracture etiologies are possible. Patient does osorio ve a atelectasis. CT abdomen and pelvis show no injury to solid abdominal viscera. Gallbladder and biliary tree are unr emarkable. No acute bowel injury seen. Patient has prominent sigmoid diverticulosis. There is slight thickening in the mid sigmoid colon and a trace amount of stranding in the adjacent fat. Patient may have an 8 concurrent minimal sigmoid diverticulitis. Colon mass is unlikely but not entirely excluded . No free air, free fluid or abnormal stranding. No urinary bladder abnormality. No acute bone finding in the abdomen or pelvis. Patient has L5 pars defects. These are generally not acute. Slight compression superior endplate L4 is also felt to be chronic. There is extensive thoraco lumbar junction endplate degenerative change. IMPRESSION: No hemorrhage, edema or acute intracranial finding. Atrophy and chronic ischemic changes are present. Left mandibular condyle is anteriorly displaced. This is a new finding from the March CT head study. M andible is only partially imaged. A slipped or displaced meniscus at the TM joint can create this pat tern. Cervical spine degenerative change without an acute finding identifiable. Right lateral fourth and fifth acute or subacute nondisplaced rib fractures present. No pneumothorax or pulmonary contusion. No traumatic injury to the abdomen or pelvis. The patient does appear to have a minimal sigmoid diver ticulitis. Bowel wall thickening due to mass is unlikely but not entirely excluded. L5 pars defects, typically chronic.
[2018-06-18] MEDS ORDERED: TETANUS & DIPHTHERIA TOX,ADULT 0.5 ML VIAL ONE (18:16)
[2018-06-18] MEDS ORDERED: D50W 25 GM/50 ML SYRINGE IV PRN (20:27)
[2018-06-18] MEDS ORDERED: GLUCAGON 1 MG/VIAL IM PRN (20:27)
[2018-06-18] MEDS: INSULIN -REGULAR HUMAN 50 UNIT/0.5 ML ML SQ SCH (21:00)
[2018-06-18 22:28] VITALS: BMI 32.0
[2018-06-18] MEDS ORDERED: PIPER/TAZO/NS 3.375gm 3.375 GM/100 ML BAG ONE (22:41)
--- NOTE | 2018-06-19 04:10 | HP ---
Date of Admission: 06/18/2018 Chief Complaint: Fall and altered mental status. History Of Present Illness: This is a 72-year-old male patient who has a history of alcohol use. Erica ves at home with his . This morning, he left home maybe around 7 or 8 o'clock or so in the morni ng time to go to his work. 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 The patient's alcohol level was 280 as per blood tests done in the emergency room, and when I asked him when was th e last time he had alcohol to drink, he informed me that he had alcohol after he left his work. He g rabbed some alcohol and drank it and then came home. We do not know if he was drinking while actuall y he was driving or not, but in any case, I had a long discussion with him today about his alcohol pr oblems. In the past, he has gone through alcohol rehab program as the patient and his report an d he is willing to go through that again as I strongly recommend him to do so. He has some injury to his right upper extremity with some skin tears and dressing was present over the right upper extremi ty with some stains of fresh blood. No active bleeding noted. The patient denies any abdominal pain , nausea, vomiting. No headache. 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 Dermatology: As mentioned above. All other systems reviewed and negative. Allergies: NO KNOWN ALLERGIES. Past Medical History: Significant for hyperlipidemia, hypertension, benign prostatic hypertrophy, pa cemaker placement, anemia, prior history of stroke. Past Surgical History: Abdominal surgery in 1956, reason unknown; pacemaker placement this year by Eric Arzola. Family History: Father with Parkinson's disease and colon cancer. Mother, myocardial infarction. Social History: Prior history of smoking, not at present time. Use of alcohol positive. Medications: According to office records, he is on aspirin 81 mg p.o. daily, atorvastatin 80 mg p.o. daily with evening meal, Plavix 75 mg p.o. daily, docusate sodium 100 mg p.o. daily, donepezil 10 mg p.o. 2 times a day, ferrous gluconate 324 mg p.o. daily, folic acid 1 mg p.o. daily, metoprolol 25 m g p.o. 2 times a day, montelukast 10 mg p.o. daily, tamsulosin 0.4 mg p.o. daily, vitamin D3 5000 uni ts p.o. daily. Physical Examination: Vital Signs: When he first came into emergency room, blood pressure was 90/58, pulse 62, respiratory rate 20, temperature 98.2, pulse ox 100%. General: Awake, alert, oriented, not in distress. HEENT: Head atraumatic, normocephalic. Conjunctivae nonerythematous. Sclerae white. Mouth, no thr ush or edema noted. Ears/Nose, no mass, lesion, discharge noted. Neck: Supple. No JVD, lymph nodes, bruit, thyromegaly noted. Lungs: Bilateral good equal air entry. Clear to auscultation. No rhonchi. No rales. Heart: Normal heart sounds, no murmur or gallop. Abdomen: Soft, bowel sounds normal. No guarding, rigidity, tenderness, mass, hepatosplenomegaly, dis tention, or bruit noted. Extremities: The patient has some skin tears and laceration to right upper extremity. Dressing was applied in the emergency room. I have not open that dressing considering it was just applied in the emergency room. Skin: No rash, ulcer, cellulitis. Lymphatics: No lymph node enlargement in neck, supraclavicular, infraclavicular region. Neuro: No focal neurological deficit. Chest: Unremarkable. External Genitalia: Deferred. Rectal: Deferred. Laboratory Data: CAT scan per trauma protocol done in the emergency room was negative for any acute intracranial changes. Abdomen shows a presence of some changes of diverticulitis without any complic ation of perforation or abscess. Chest x-ray, no acute changes noted. Shallow inspiration noted. A lcohol level 280. Liver function test normal. Troponin less than 0.02. PT and PTT normal. Sodium 140, potassium 3.7, chloride 109, bicarb 18, BUN 20, creatinine 1.20, glucose 125. White count 7, he moglobin 11.9, platelets 179. Impression: 1.Alcohol intoxication. 2.Hypotension. 3.Cough. 4.Hyperlipidemia. 5.Benign prostatic hypertrophy. 6.Acute diverticulitis. 7.Hypertension. 8.Status post pacemaker placement. 9.Anemia. Plan: Admit the patient to hospital for further evaluation and management of this problem. We will go ahead and start using Zosyn. Home medications will be continued per order. We will give IV fluid with multivitamin, thiamine. I have discussed with the patient about my recommendation, and that is he should quit using alcohol completely and risk of alcohol drinking and driving leading to accident s and injury to himself and other people explained to him. I also gave him my recommendation that he should go for alcohol rehab program. He is willing to do and we will consult. JULIAN/NELA Voice ID: [id number]
[2018-06-19] MEDS ORDERED: PIPER/TAZO/NS 3.375gm 3.375 GM/100 ML BAG ONE (04:54)
[2018-06-19] MEDS: PIPER/TAZO/NS 3.375gm 3.375 GM/100 ML BAG IVPB SCH ×4 (05:20→17:28)
[2018-06-19 05:59] LABS: Absolute Lymphocytes (CBC) 0.8 K/uL (0.7-4.9); Absolute Monocytes 0.7 K/uL (0.1-1.3); Basophils % 0.6 % (0-1.3); Eosinophils % 1.4 % (0-4.4); Hematocrit 34.9 % (39.6-49.0); Lymphocytes % 10.5 % (15.3-44.8); MCH 32.3 pg (27.0-35.0); MCV 91.5 fL (80-100); MPV 8.1 fL (7.6-11.3); Monocytes % 9.5 % (3.3-12.3); RBC Red Blood Cell Count 3.82 M/uL (4.33-5.43)
[2018-06-19 06:19] LABS: Potassium 4.2 mmol/L (3.5-5.1)
[2018-06-19] MEDS: INSULIN -REGULAR HUMAN 50 UNIT/0.5 ML ML SQ SCH ×4 (07:30→21:00)
[2018-06-19] MEDS ORDERED: INFLUENZA VACCINE (for 3y+) 0.5 ML DOSE IMVAC ONE (08:00)
[2018-06-19] MEDS ORDERED: PNEUMOCOCCAL VACCINE 0.5 ML IMVAC ONE (08:00)
--- NOTE | 2018-06-19 08:01 | RAD REPORT ---
EXAM DESCRIPTION: Richard Single View06/19/2018 6:04 am CLINICAL HISTORY: Chest pain COMPARISON: 06/18/2018 FINDINGS: The lungs appear clear of acute infiltrate. The heart is mildly enlarged. Pacemaker leads are in place. IMPRESSION: No acute abnormalities displayed
[2018-06-19] MEDS: FERROUS SULFATE 325 MG TAB PO SCH (08:54)
[2018-06-19] MEDS: MONTELUKAST 10 MG TAB PO SCH (08:55)
[2018-06-19] MEDS: ASPIRIN 81 MG CHEWABLE TABLET PO SCH (08:55)
[2018-06-19] MEDS: CLOPIDOGREL 75 MG TABLET PO SCH (08:55)
[2018-06-19] MEDS: VITAMIN D 5,000 UNIT CAP PO SCH (08:55)
[2018-06-19] MEDS: FOLIC ACID 1 MG TABLET PO SCH (08:55)
[2018-06-19] MEDS: PANTOPRAZOLE 40 MG INJ IVP SCH (08:56)
[2018-06-19] MEDS: METOPROLOL TAR 25 MG TAB PO SCH ×2 (08:56→21:21)
[2018-06-19] MEDS: FOLIC ACID 1 MG, MULTIVITAMINS INJ 10 ML, THIAMINE HCL 100 MG in NA CHLORIDE 0.9% 1,000 ML IV SCH (09:18)
--- NOTE | 2018-06-19 09:24 | EKG ---
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
--- NOTE | 2018-06-19 09:27 | EKG ---
Test Date: 2018-06-18 Test Time: 15:41:53 Outcomes Analyst: [place] MEASUREMENT RESULTS: Intervals: Rate: 60 [place]: 80 QRSD: 190 QT: 482 QTc: 482 [place]: P: [place]: 80 QRS: -80 T: 87 INTERPRETIVE STATEMENTS: Sinus rhythm with short [place] Left axis deviation Nonspecific intraventricular block Lateral infarct, age undetermined Inferior infarct, age undetermined Abnormal ECG Compared to ECG 04/03/2018 17:43:56 Short [place] interval now present Left-axis deviation now present Myocardial infarct finding now present Ventricular-paced complex(es) or rhythm no longer present Atrial-sensed ventricular-paced complex(es) or rhythm no longer present Electronically Signed On 06-19-18 09:24:24 CDT by Pillo Bonilla
[2018-06-19] MEDS ORDERED: TAMSULOSIN 0.4 MG SR CAP PO SCH (21:00)
[2018-06-19] MEDS ORDERED: ATORVASTATIN 80 MG TAB PO SCH (21:00)
[2018-06-19] MEDS ORDERED: DONEPEZIL HCL 5 MG TAB PO SCH (21:00)
[2018-06-19 22:46] VITALS: O2SAT 97
--- NOTE | 2018-06-19 23:37 | PN ---
Date of Progress Note: 06/19/2018 Subjective: The patient was seen this morning for followup. No new complaints or problems reported by him. No nausea vomiting. Objective: Vital Signs: Reviewed. HEENT: Unremarkable. Lungs: Clear to auscultation. Heart: Sounds normal. Abdomen: Soft. Bowel sounds normal. No guarding, rigidity, tenderness, or distention. Extremities: No leg edema. Laboratory Data: White count 7.7, hemoglobin 12.3, and platelets 190. Sodium 143, potassium 4.2, ch loride 111, bicarb 20, BUN 17, creatinine 1.10, and glucose 102. Impression: 1.Acute diverticulitis. 2.Alcohol intoxication. 3.Hypertension. Plan: The patient's altered mental status has resolved. We will continue current IV antibiotics, mu ltivitamin, and thiamine supplementation. Home medications will be continued per order. The patient was advised to ambulate with help of Physical Therapy and Social Service to assist with discharge raghu foster. JULIAN/MODL Voice ID: [id number] Report ID: [id number]
[2018-06-20] MEDS: PIPER/TAZO/NS 3.375gm 3.375 GM/100 ML BAG IVPB SCH ×2 (01:37→08:48)
[2018-06-20] MEDS: INSULIN -REGULAR HUMAN 50 UNIT/0.5 ML ML SQ SCH ×2 (07:30→11:30)
[2018-06-20] MEDS: MONTELUKAST 10 MG TAB PO SCH (08:47)
[2018-06-20] MEDS: FOLIC ACID 1 MG TABLET PO SCH (08:47)
[2018-06-20] MEDS: VITAMIN D 5,000 UNIT CAP PO SCH (08:47)
[2018-06-20] MEDS: PANTOPRAZOLE 40 MG INJ IVP SCH (08:47)
[2018-06-20] MEDS: METOPROLOL TAR 25 MG TAB PO SCH (08:47)
[2018-06-20] MEDS: CLOPIDOGREL 75 MG TABLET PO SCH (08:47)
[2018-06-20] MEDS: FERROUS SULFATE 325 MG TAB PO SCH (08:48)
[2018-06-20] MEDS: ASPIRIN 81 MG CHEWABLE TABLET PO SCH (08:48)
[2018-06-20] MEDS: FOLIC ACID 1 MG, MULTIVITAMINS INJ 10 ML, THIAMINE HCL 100 MG in NA CHLORIDE 0.9% 1,000 ML IV SCH (09:00)
[2018-06-20 12:22] VITALS: BP 158/86; TEMP 98.8
--- NOTE | 2018-06-21 06:15 | DS ---
Date of Discharge: 06/20/2018 Disposition: Discharged to go home. Physical Examination: HEENT: Unremarkable. Lungs: Clear to auscultation. Heart: Sounds normal. Abdomen: Soft. Bowel sounds normal. No guarding, rigidity, tenderness, or distention. Extremities: No leg edema. Discharge Medications And Instructions: 1.Continue prior home medications. 2.Take Augmentin with food 875 mg p.o. b.i.d. for 1 week. 3.Follow up at my office in 2 weeks. 4.Do not drink any alcohol. 5.Please arrange for alcohol rehab with information provided to you by Social Service and all these details were discussed with the patient personally by me this morning prior to discharge. Laboratory Data: Labs done during this hospitalization; white count upon admission was 7, hemoglobin 11.9, platelets 179. Troponin level less than 0.02. Chemistry yesterday; sodium 143, potassium 4.2 , chloride 111, bicarb 20, BUN 17, creatinine 1.10, glucose 102. Hospital Course: A 72-year-old male patient who was admitted to the hospital with fall and altered m ental status. He was evaluated in the emergency room. After he was brought in, his alcohol level wa s elevated and he was admitted to the hospital. CAT scan had shown evidence of acute diverticulitis without any complication. He did not have any complications from diverticulitis. In fact, he did no t even have any symptoms from diverticulitis, but it was noted on the CAT scan. He was started on IV Zosyn. IV fluid with multivitamin was started. The patient did not show any signs of alcohol withd leandro during this hospitalization. I did talk to him and explain him importance about stopping alcoh ol use completely and he tells me he has gone through alcohol rehab in the past and he is willing to go through such alcohol rehab program, and since he showed such willingness, we did consult Social Se rvice to assist with that and Social Service has provided him and understand by reviewing Social Serv ice notes that the patient has to make his own arrangements and phone calls for such rehab programs a ar Social Service has provided him with names of different facilities as well as contact information. He is tolerating diet very well. His home medications were continued and he was [facility] in stable condition with above-mentioned medication and instructions. Final Diagnoses: 1.Alcohol intoxication. 2.Acute diverticulitis without perforation or hemorrhage. 3.Hypotension. 4.Hyperlipidemia. 5.Benign prostatic hypertrophy. 6.Status post pacemaker placement. 7.Anemia. JULIAN/MODL Voice ID: [id number] Report ID: [id number]
== END 2018-06-20 12:36 | disposition home or self-care (01) ==
LOC: ER 15:19 → ERHOLD 16:33 → 4TH 18:09
PROVIDERS: ADMIT Internal Medicine; ATTEND Internal Medicine
DX: F10.129 Alcohol abuse with intoxication, unspecified (principal); K57.92 Diverticulitis of intestine, part unspecified, without perforation or abscess without bleeding; I95.9 Hypotension, unspecified; E78.5 Hyperlipidemia, unspecified; I10 Essential (primary) hypertension; N40.0 Benign prostatic hyperplasia without lower urinary tract symptoms; D64.9 Anemia, unspecified; W19.XXXA Unspecified fall, initial encounter; Y93.9 Activity, unspecified; Z23 Encounter for immunization; Z86.73 Personal history of transient ischemic attack (TIA), and cerebral infarction without residual deficits; Z87.891 Personal history of nicotine dependence; Z95.0 Presence of cardiac pacemaker
CPT/HCPCS: 36415; 70450; 71045; 71260; 72125; 74177; 80048; 80076; 80307; 80320; 80329; 82962; 83735; 83880; 84484; 85025; 85610; 85730; 90670; 90714; 93005; 96365; 96366; 96368; 99285; C9113; G0008; G0009; G0378; J2543; J3411; J7030; Q2035; Q9967